=== PATIENT | male | born 1985 | race Caucasian/White ===

== ENCOUNTER 2016-11-04 17:24 | Emergency (ER) | payer SELFPAY ==
[2016-11-04 17:54] VITALS: BP 119/79
--- NOTE | 2016-11-04 18:04 | ER Document Report ---
HPI - HPI Patient complains to provider of: rash Pain Level: 3 Context: 30 yo male c/o rash to shoulders and lower legs x 1 day. + itching Associated Symptoms: None Exacerbated by: Denies Relieved by: Denies Similar symptoms previously: No Recently seen / treated by doctor: No - ROS Systems Reviewed and Negative: Yes All other systems reviewed and negative - DERM Skin Color: Normal Past Medical History - General Information source: Patient - Social History Smoking Status: Current Every Day Smoker Frequency of alcohol use: None Drug Abuse: None Lives with: Family Family History: Reviewed & Not Pertinent - Medical History Medical History: Negative Renal/ Medical History: Denies: Hx Peritoneal Dialysis Vertical Provider Document - CONSTITUTIONAL Agree With Documented VS: Yes Exam Limitations: No Limitations General Appearance: WD/WN, No Apparent Distress - INFECTION CONTROL TRAVEL OUTSIDE OF THE [place] IN LAST 30 DAYS: No - HEENT HEENT: Atraumatic, PERRLA - NECK Neck: Normal Inspection, Supple - RESPIRATORY Respiratory: Breath Sounds Normal, No Respiratory Distress O2 Sat by Pulse Oximetry: 96 - CARDIOVASCULAR Cardiovascular: Regular Rate, Regular Rhythm - NEURO Level of Consciousness: Awake, Alert, Appropriate - DERM Integumentary: Warm, Dry, Rash - scattered deroofed maculopapular rash to bilat shoulders and anterior left lower leg. trunk spared. + excoriations Course - Vital Signs Vital signs: Temp Pulse Resp BP Pulse Ox 98.2 F 88 16 119/79 96 11/04/16 17:50 11/04/16 17:50 11/04/16 17:50 11/04/16 17:50 11/04/16 17:50 Discharge - Discharge Clinical Impression: Rash and nonspecific skin eruption Condition: Stable Disposition: HOME, SELF-CARE Instructions: Use of Diphenhydramine, Topical Steroid Cream or Ointment ([facility]) Additional Instructions: Use steroid cream as prescribed Take Benadryl,, 2 tablets every 6h as needed for itching Follow up with primary care if rash persists or worsens Prescriptions: Hydrocortisone [Hydrocortisone 0.5% Cream 28.35 Gm] 1 applic TP BID #30 g
== END 2016-11-04 18:17 | disposition home or self-care (01) ==
LOC: ER 17:24
DX: R21 Rash and other nonspecific skin eruption (principal); L29.8 Other pruritus; F17.200 Nicotine dependence, unspecified, uncomplicated
CPT/HCPCS: 99282

== ENCOUNTER 2016-11-25 14:49 | Emergency (ER) | payer SELFPAY ==
[2016-11-25] MEDS ORDERED: HYDROCODONE/ACETAMINOPHEN 5-325 MG 6 TAB/DSPK PO PRN (15:37)
--- NOTE | 2016-11-25 15:45 | ER Document Report ---
ED Skin Rash/Insect Bite/Abscs - General Chief Complaint: Abscess Stated Complaint: ABSCESS/RIGHT INDEX FINGER Time Seen by Provider: 11/25/16 15:25 Mode of Arrival: Ambulatory Information source: Patient Notes: 31-year-old male presents to ED for infected right index finger. Patient states she had a bug bite 4 days ago. He states it look like a blister and it poked it with his knife. He states he some clear fluid came out and then the finger started becoming red and inflamed and swollen and painful over the last 4 days. Finger is now extremely painful to touch and he has limited motion to the finger. TRAVEL OUTSIDE OF THE [place] IN LAST 30 DAYS: No - HPI Patient complains to provider of: Tender/swollen area Onset: Other - Over the last 4 days Onset/Duration: Gradual Quality of pain: Pressure, Sharp, Throbbing Severity: Severe Pain Level: 5 Skin Character: Erythema, Swelling, Tenderness, Warm Skin Temperature: Warm Quality of rash: Painful Identify cause: Yes - blister he popped Exacerbated by: Movement Relieved by: Denies Similar symptoms previously: No Recently seen / treated by doctor: No - Related Data Allergies/Adverse Reactions: No Known Allergies Allergy (Verified 11/25/16 14:51) Past Medical History - General Information source: Patient - Social History Smoking Status: Current Every Day Smoker Cigarette use (# per day): Yes - 1/2 ppd Frequency of alcohol use: Rare Drug Abuse: None Lives with: Parents Family History: CAD, CVA, DM, Hyperlipidemia, Hypertension, Malignancy Patient has suicidal ideation: No Patient has homicidal ideation: No - Past Medical History Cardiac Medical History: Reports: None Pulmonary Medical History: Reports: None EENT Medical History: Reports: None Neurological Medical History: Reports: None Endocrine Medical History: Reports: None Renal/ Medical History: Reports: None Malignancy Medical History: Reports None GI Medical History: Reports: None Musculoskeltal Medical History: Reports None Skin Medical History: Reports None Psychiatric Medical History: Reports: None Traumatic Medical History: Reports: None Infectious Medical History: Reports: None Surgical Hx: Negative Past Surgical History: Reports: None - Immunizations Hx Diphtheria, Pertussis, Tetanus Vaccination: Yes Review of Systems - Review of Systems Constitutional: No symptoms reported EENT: No symptoms reported Cardiovascular: No symptoms reported Respiratory: No symptoms reported Gastrointestinal: No symptoms reported Genitourinary: No symptoms reported Male Genitourinary: No symptoms reported Musculoskeletal: No symptoms reported Skin: Other - Abscess to right second finger red swollen tight Hematologic/Lymphatic: No symptoms reported Neurological/Psychological: No symptoms reported -: Yes All other systems reviewed and negative - . Physical Exam - Vital signs Vitals: Temp Pulse Resp BP Pulse Ox 97.9 F 76 16 145/88 H 98 11/25/16 14:51 11/25/16 14:51 11/25/16 14:51 11/25/16 14:51 11/25/16 14:51 Interpretation: Normal - General General appearance: Appears well, Alert - HEENT Head: Normocephalic, Atraumatic Eyes: Normal Pupils: PERRL - Respiratory Respiratory status: No respiratory distress Chest status: Nontender Breath sounds: Normal Chest palpation: Normal - Cardiovascular Rhythm: Regular Heart sounds: Normal auscultation Murmur: No - Abdominal Inspection: Normal Distension: No distension Bowel sounds: Normal Tenderness: Nontender Organomegaly: No organomegaly - Back Back: Normal, Nontender - Extremities General upper extremity: Normal inspection, Nontender, Normal color, Normal ROM , Normal temperature General lower extremity: Normal inspection, Nontender, Normal color, Normal ROM , Normal temperature, Normal weight bearing. No: Amandeep's sign - Neurological Neuro grossly intact: Yes Cognition: Normal Orientation: AAOx4 Christianne Coma Scale Eye Opening: Spontaneous [place] Coma Scale Verbal: Oriented [place] Coma Scale Motor: Obeys Commands [place] Coma Scale Total: 15 Speech: Normal Motor strength normal: LUE, RUE, LLE, RLE Sensory: Normal - Psychological Associated symptoms: Normal affect, Normal mood - Skin Skin Temperature: Warm Skin Moisture: Dry Skin Color: Normal Skin irregularity: Abscess Location of irregularity: Extremities - right index finger Character of irregularity: Erythematous Irregularity with: Swelling, Tenderness, Warmth Course - Re-evaluation Re-evalutation: 11/25/16 17:[address] Medina a very swollen red and infected index finger on the right hand. Patient is right-handed. He recommended that the finger be I&D started patient started on Septra and Keflex and discharged home to follow-up with Dr. Shane in the near future. Patient was given instructions concerning the need for him to follow-up with orthopedic surgeon as instructed as this was a severe index finger infection and needed to be followed up. Patient was treated with Vina dispense back Septra and Keflex in the emergency room and discharged home with prescriptions for Keflex and Septra. Patient was instructed to soak finger in Epsom salt at least 3 times a day. - Vital Signs Vital signs: Temp Pulse Resp BP Pulse Ox 97.7 F 56 L 16 141/91 H 97 11/25/16 17:07 11/25/16 17:07 11/25/16 17:07 11/25/16 17:07 11/25/16 17:07 - Diagnostic Test Radiology reviewed: Image reviewed, Reports reviewed Procedures - Incision and Drainage Right Finger 2nd digit Type: Complex Anesthetic type: 1% Lidocaine mL's of anesthetic: 5 Blade size: 11 I&D procedure: Sterile dressing applied, Other - surgical scrub Incision Method: Incision made by scalpel Amount/type of drainage: large amount of purulent drainage Discharge - Discharge Clinical Impression: Insect bite of right index finger with infection, Abscess Condition: Stable Disposition: HOME, SELF-CARE Additional Instructions: ABSCESS: You have an abscess (boil). This a pus-forming infection, usually due to staph. Some boils may be left to drain on their own, but most require lancing. From the time the tender lump first appears, it may be three or four days before the abscess is ready to medina. Local heat and rest help at this stage of treatment. An antibiotic may prevent spread of the infection. Once the abscess is opened, packing may be placed into it. This is done so pus is not sealed inside by premature closure of the cavity. The packing will be removed at your follow-up visit or you may be advised to remove it yourself at home. Sometimes this packing must be replaced a few times during healing. The wound will heal with surprisingly little scar. Depending on the size and location of an abscess, healing can take one to four weeks. You may shower and wash the area around the incision site two or three times a day. Antibiotics may be prescribed, but are usually not necessary after an abscess has been drained. If you develop fever, chills, worsening pain, or increasing swelling in the area, call the doctor or return immediately. POST INCISION AND DRAINAGE: You have had an incision made to allow drainage of an abscess. The incision must remain open so that pus and debris can drain from the wound. If the abscess cavity is large, packing is placed. This keeps the tissues from collapsing and trapping pus inside, while the body shrinks the cavity. The packing may need to be replaced every day or two. The physician will instruct you on the packing. Keep a bulky dressing over the area. Replace it if it becomes saturated with blood or pus. Do not disturb the packing (if present). You may shower and cleanse the area with gentle soap and warm water two or three times a day. Local warmth may be soothing, and may promote faster healing. Return if you develop high fever or chills, or if you note spreading redness, increasing swelling, or increasing tenderness. ORAL NARCOTIC MEDICATION: You have been given a RainStor dispense pack for pain control. This medication is a narcotic. It's best taken with food, as nausea can result if taken on an empty stomach. Don't operate machinery or drive within six hours of taking this medication. Do not combine this medicine with alcohol, or with any medication which can cause sedation (such as cold tablets or sleeping pills) unless you get permission from the physician. Narcotics tend to cause constipation. If possible, drink plenty of fluids and eat a diet high in fiber and fruits. CEPHALEXIN: The antibiotic you've been prescribed is a member of the cephalosporin class. This type of antibiotic covers a wide variety of infections, including those of the skin, lungs, and urinary tract. It's useful for staph infections. This antibiotic is slightly similar to the penicillin family. In rare cases , a person who is allergic to penicillin will also be allergic to this medication. If you have had a severe allergic reaction to penicillin, and have not taken this antibiotic since that time, notify your doctor. Antibiotics which cover many germs ("broad spectrum" antibiotics) are more likely to cause diarrhea or "yeast" infections. Women prone to vaginal yeast problems may suffer an attack after taking this antibiotic. In infants, oral thrush (white spots "stuck" on the cheek) or yeast diaper rash may result. See your doctor if these problems occur. Call at once if you develop itching, hives , shortness of breath, or lightheadedness. TRIMETHOPRIM-SULFA: You have been given a prescription for trimethoprim-sulfa (TMS, Septra, Bactrim). This is a combination antibiotic of the sulfa class, often used for urinary tract infections, middle ear infections, bronchitis, shigella intestinal infection, and Pneumocystis pneumonia. TMS is usually well-tolerated. Occasional side effects include nausea and decreased appetite. Septra is not recommended for infants less than two months of age. Do not take this medication if you have experienced severe side effects or allergy to sulfa medicine. You should stop this medicine at once and contact your physician if you develop any rash, joint pain, shortness of breath, bruising, or jaundice ( yellow color in the skin), or if you develop any other new or unusual symptoms. Epsom Salt Soaks Soak the wound area in a container of warm epsom salt water. If you can't get the wound area into a bucket or johnson, use a folded towel soaked in the epsom salt solution and apply to the area. Use clean hot tap water (about the temperature of a very warm bath), mixing in about one (1) teaspoon for every pint of water. Two gallon --> 16 teaspoons Epsom Salts One gallon --> 8 teaspoons Epsom Salts Two quarts --> 4 teaspoons Epsom Salts One quart --> 2 teaspoons Epsom Salts Soak the wound for about 20 minutes while gently moving it around in the water. Repeat this four (4) times a day. Very important that you follow-up with orthopedic surgeon as instructed. FOLLOW-UP CARE: Most simple abscesses will not require a follow up visit. If you had packing placed in the abscess, remove it as instructed by the physician. If you have been referred to a physician for follow-up care, call the physicians office for an appointment as you were instructed or within the next two days. If you experience worsening or a significant change in your symptoms, return to the Emergency Department at any time for re-evaluation. Prescriptions: Cephalexin Monohydrate [Keflex 500 mg Capsule] 500 mg PO QID #20 capsule Sulfamethoxazole/Trimethoprim [Septra-Ds 800-160 mg Tablet] 1 tab PO BID #20 tablet Forms: Elevated Blood Pressure, Smoking Cessation Education Referrals: DEBBY SHANE, [ACTIVE STAFF] - Follow up as needed
--- NOTE | 2016-11-25 16:24 | RADIOLOGY REPORT (SQ) ---
EXAM DESCRIPTION: HAND RIGHT 3 VIEWS COMPLETED DATE/TIME: 11/25/2016 4:04 pm REASON FOR STUDY: infected 2nd finger COMPARISON: None. EXAM PARAMETERS: NUMBER OF VIEWS: Three views. TECHNIQUE: AP, lateral and oblique radiographic images acquired of the right hand. LIMITATIONS: None. FINDINGS: MINERALIZATION: Normal. BONES: No acute fracture or dislocation. No worrisome bone lesions. JOINTS: No effusions. SOFT TISSUES: Soft tissue swelling of the index finger. No radiopaque foreign body. OTHER: No other significant finding. IMPRESSION: Soft tissue swelling with no osseous abnormality and no foreign body identified. TECHNICAL DOCUMENTATION: JOB ID: [id number] [employer]- All Rights Reserved
[2016-11-25] MEDS ORDERED: SULFAMETHOXAZOLE/TRIMETHOPRIM 800-160 MG TABLET PO ONE (17:25)
[2016-11-25] MEDS ORDERED: CEPHALEXIN 500 MG CAPSULE PO ONE (17:25)
[2016-11-25 17:52] VITALS: BP 141/91
== END 2016-11-25 17:46 | disposition home or self-care (01) ==
LOC: ER 14:49
PROC: 0H9FXZZ Drainage of Right Hand Skin, External Approach (ICD-10-PCS; principal; 2016-11-25)
DX: L02.511 Cutaneous abscess of right hand (principal); F17.210 Nicotine dependence, cigarettes, uncomplicated
CPT/HCPCS: 87070; 87075; 87077; 87186; 87205; 99283

== ENCOUNTER 2016-11-26 04:27 | Emergency (ER) | payer SELFPAY ==
--- NOTE | 2016-11-26 06:34 | ER Document Report ---
ED General - General Chief Complaint: Hand Swelling Stated Complaint: INSECT BITE ON FINGER Time Seen by Provider: 11/26/16 06:23 TRAVEL OUTSIDE OF THE [place] IN LAST 30 DAYS: No - Related Data Allergies/Adverse Reactions: No Known Allergies Allergy (Verified 11/26/16 04:27) Past Medical History - Social History Family History: CAD, CVA, DM, Hyperlipidemia, Hypertension, Malignancy Renal/ Medical History: Denies: Hx Peritoneal Dialysis Surgical Hx: Negative - Immunizations Hx Diphtheria, Pertussis, Tetanus Vaccination: Yes Physical Exam - Vital signs Vitals: Temp Pulse Resp BP Pulse Ox 97.9 F 79 16 142/82 H 97 11/26/16 04:27 11/26/16 04:27 11/26/16 04:27 11/26/16 04:27 11/26/16 04:27 Course - Vital Signs Vital signs: Temp Pulse Resp BP Pulse Ox 97.9 F 79 16 142/82 H 97 11/26/16 04:27 11/26/16 04:27 11/26/16 04:27 11/26/16 04:27 11/26/16 04:27
--- NOTE | 2016-11-26 06:34 | ER Document Report ---
ED Hand/Wrist Injury - General Mode of Arrival: Ambulatory Information source: Patient TRAVEL OUTSIDE OF THE [place] IN LAST 30 DAYS: No - HPI Injury to: Index finger - right Onset: Other - 4 days ago <RAYSHAWN LOZOYA - Last Filed: 11/26/16 09:46> <NICK AVILA - Last Filed: 11/27/16 15:45> - General Chief Complaint: Hand Swelling Stated Complaint: INSECT BITE ON FINGER Time Seen by Provider: 11/26/16 06:23 Notes: Patient is a 31 year old male with no pertinent medical history who presents to the ED with complaints of worsening pain and swelling to his right hand and #2 digit. Patient was seen in the ED yesterday (11/25/16) and was told he had a bug bite. An I&D was done to his finger and he was placed on Septra and Keflex and instructed to follow up with an orthopedic surgeon in the near future. Patient states 4 days ago a blister developed, he used his pocket knife to pop it, there was some clear discharge with some yellow pus. Since then the swelling and pain has increased significantly. Patient reports some decrease in ROM secondary to the pain and swelling and some numbness in the #2 digit. Patient denies abdominal pain, sore throat, or swollen lymph nodes. He adds he does feel like he has a cold however the cold started prior to his finger. (RAYSHAWN LOZOYA) - Related Data Allergies/Adverse Reactions: No Known Allergies Allergy (Verified 11/26/16 04:27) Past Medical History - General Information source: Patient - Social History Smoking Status: Unknown if Ever Smoked Family History: CAD, CVA, DM, Hyperlipidemia, Hypertension, Malignancy Renal/ Medical History: Denies: Hx Peritoneal Dialysis Surgical Hx: Negative - Immunizations Hx Diphtheria, Pertussis, Tetanus Vaccination: Yes <RAYSHAWN LOZOYA - Last Filed: 11/26/16 09:46> Review of Systems - Review of Systems Constitutional: No symptoms reported EENT: See HPI. denies: Throat pain Cardiovascular: No symptoms reported Respiratory: No symptoms reported Gastrointestinal: See HPI. denies: Abdominal pain Genitourinary: No symptoms reported Male Genitourinary: No symptoms reported Musculoskeletal: See HPI, Other - right hand swelling and pain, right #2 digit swelling and pain with numbness Skin: See HPI, Other - bug bite to right #2 digit Hematologic/Lymphatic: See HPI. denies: Enlarged lymph nodes Neurological/Psychological: No symptoms reported <RAYSHAWN LOZOYA - Last Filed: 11/26/16 09:46> Physical Exam - General General appearance: Alert - HEENT Head: Normocephalic, Atraumatic Eyes: Normal Extraocular movements intact: Yes Pupils: PERRL - Respiratory Respiratory status: No respiratory distress Breath sounds: Normal - Cardiovascular Rhythm: Regular Heart sounds: Normal auscultation Murmur: No - Abdominal Inspection: Normal Distension: No distension Tenderness: Nontender - Extremities General upper extremity: Other - Right hand #2 digit is diffusely swollen with a lesion between the dip and pip joint, there is a 5mm incision at the lesion with purulent drainage. Swelling into the dorsam of the right hand. Upper extremity exam is otherwise normal General lower extremity: Normal inspection, Normal ROM. No: Edema - Neurological Neuro grossly intact: Yes - Psychological Associated symptoms: Normal affect, Normal mood - Skin Skin Temperature: Warm Skin Moisture: Dry Skin Color: Normal Skin irregularity: other - see upper extremity exam <RAYSHAWN LOZOYA - Last Filed: 11/26/16 09:46> - Vital signs Vitals: Temp Pulse Resp BP Pulse Ox 97.9 F 79 16 142/82 H 97 11/26/16 04:27 11/26/16 04:27 11/26/16 04:27 11/26/16 04:27 11/26/16 04:27 Course - Laboratory Result Diagrams: 11/26/16 06:47 11/26/16 06:47 - Consults [facility] Transfer Line Time consulted: 08:00 Dr. Bojorquez Time consulted: 08:14 [facility] transfer line Time consulted: 08:21 [facility] transfer line Time consulted: 08:22 Dr. Styles Time consulted: 09:02 <RAYSHAWN LOZOYA - Last Filed: 11/26/16 09:46> - Laboratory Result Diagrams: 11/26/16 06:47 11/26/16 06:47 <NICK AVILA - Last Filed: 11/27/16 15:45> - Re-evaluation Re-evalutation: 11/26/16 13:14 Transfer team from [facility] and is now here to take the patient to [place]. Patient appears to be stable. He does have some ongoing discomfort. We will treat him with an additional dose of morphine. (NICK AVILA) - Vital Signs Vital signs: Temp Pulse Resp BP Pulse Ox 98.2 F 78 20 146/86 H 96 11/26/16 09:29 11/26/16 09:29 11/26/16 09:29 11/26/16 09:29 11/26/16 09:29 - Laboratory Laboratory results interpreted by me: 11/26/16 11/26/16 06:47 06:47 WBC 15.8 H RDW 14.9 H Seg Neutrophils % 79.2 H Lymphocytes % 11.0 L Absolute Neutrophils 12.5 H Glucose 113 H - Consults [facility] Transfer Line Reason for consultation: 11/26/16 08:00 Discussed patient with transfer line. We will fax cover sheet and provider will call back (RAYSHAWN LOZOYA) Dr. Bojorquez Reason for consultation: 11/26/16 08:14 Discussed patient. He is wanting me to find a hand surgeon (RAYSHAWN LOZOYA) [facility] transfer line Reason for consultation: 11/26/16 08:21 Discussed patient. They do not have a hand surgeon investigations consultant today. (RAYSHAWN LOZOYA) [facility] transfer line Reason for consultation: 11/26/16 08:22 Discussed patient. They will call back. (RAYSHAWN LOZOYA) Dr. Styles Reason for consultation: 11/26/16 09:02 Discussed patient. Patient is accepted for admission pending bed availability at [facility]. They will try to do ED to ED transfer. 11/26/16 09:46 He is the accepting physician for this patient. We will arrange transport. ( RAYSHAWN LOZOYA) Discharge <RAYSHAWN LOZOYA - Last Filed: 11/26/16 09:46> <NICK AVILA - Last Filed: 11/27/16 15:45> - Discharge Clinical Impression: Local infection of wound Cellulitis of index finger Qualifiers: Laterality: right Qualified Code(s): L03.011 - Cellulitis of right finger Condition: Fair Disposition: [facility] Scribe Documentation - Scribe Written by Scribe:: jeniffer Brunson, 11/26/2016, [id number] acting as scribe for :: Vitaly <RAYSHAWN LOZOYA - Last Filed: 11/26/16 09:46>
[2016-11-26] MEDS ORDERED: PIPERACILLIN/TAZOBACTAM 3.375 GM VIAL IV ONE (06:37)
[2016-11-26 07:05] LABS: ABSOLUTE BASOPHILS # (AUTO) 0.1 10^3/uL (0.0-0.2); ABSOLUTE EOSINOPHILS # (AUTO) 0.3 10^3/uL (0.0-0.6); ABSOLUTE LYMPHOCYTES (AUTO) 1.7 10^3/uL (0.5-4.7); ABSOLUTE MONOCYTES (AUTO) 1.1 10^3/uL (0.1-1.4); ABSOLUTE NEUT (AUTO) 12.5 10^3/uL (1.7-8.2); BASOPHILS % (AUTO) 0.7 % (0-2); EOSINOPHILS % (AUTO) 1.9 % (0-6); HEMATOCRIT 46.7 % (37.9-51.0); HEMOGLOBIN 15.1 g/dL (13.5-17.0); HGB HCT DIFFERENCE -1.4; MEAN CORPUSCULAR HEMOGLOBIN 27.6 pg (27.0-33.4); MEAN CORPUSCULAR HGB CONC 32.2 g/dL (32.0-36.0); MEAN CORPUSCULAR VOLUME 86 fl (80-97); MONOCYTES % (AUTO) 7.2 % (3-13); RED BLOOD COUNT 5.46 10^6/uL (4.35-5.55); RED CELL DISTRIBUTION WIDTH 14.9 % (11.5-14.0); SEGMENTED NEUTROPHILS % (AUTO) 79.2 % (42-78); WHITE BLOOD COUNT 15.8 10^3/uL (4.0-10.5)
[2016-11-26 07:27] LABS: ALANINE AMINOTRANSFERASE 34 U/L (21-72); ALBUMIN 3.9 g/dL (3.5-5.0); ALKALINE PHOSPHATASE 77 U/L (38-126); ANION GAP 7 (5-19); ASPARTATE AMINO TRANSFERASE 47 U/L (17-59); BILIRUBIN,DIRECT 0.4 mg/dL (0.0-0.4); BILIRUBIN,TOTAL 0.4 mg/dL (0.2-1.3); BLOOD UREA NITROGEN 12 mg/dL (7-20); CALCIUM 9.6 mg/dL (8.4-10.2); CARBON DIOXIDE 29 mmol/L (22-30); CHLORIDE 104 mmol/L (98-107); CREATININE RESULT 0.73 mg/dL (0.52-1.25); GLUCOSE 113 mg/dL (75-110); POTASSIUM 4.3 mmol/L (3.6-5.0); TOTAL PROTEIN 6.8 g/dL (6.3-8.2)
[2016-11-26] MEDS ORDERED: MORPHINE SULFATE 10 MG/ML INJ ONE (07:54)
[2016-11-26] MEDS ORDERED: NORMAL SALINE 1000 ML 1,000 ML IV PRN (09:21)
[2016-11-26] MEDS ORDERED: MORPHINE SULFATE 10 MG/ML INJ IV ONE ×3 (09:22→13:15)
[2016-11-26 09:31] VITALS: BP 146/86
== END 2016-11-26 13:40 | disposition short-term general hospital (02) ==
LOC: ER 04:27
DX: L03.011 Cellulitis of right finger (principal); M79.89 Other specified soft tissue disorders; M79.641 Pain in right hand
CPT/HCPCS: 96376; 99284; 96361; 96375; 96365; 36415; 87040; 87070; 87205; 85025; 87077; 80053; 87186; J2270; J7030; J2543

== ENCOUNTER 2017-10-05 10:10 | Emergency (ER) | payer SELFPAY ==
--- NOTE | 2017-10-05 10:57 | ER Document Report ---
ED Extremity Problem, Lower - General Chief Complaint: Toe Injury Stated Complaint: RIGHT FOOT PAIN Time Seen by Provider: 10/05/17 10:37 Mode of Arrival: Ambulatory Information source: Patient Notes: 31-year-old male presents to ED for complaint of his left great toe pain. He states that he dropped a floor jaja on his great toe yesterday and it is painful. He states it is painful to ambulate. He is alert and oriented respirations regular and unlabored pupils equal and react light and walking with a even steady gait. There is a small abrasion and bruise to his left great toe. He also complains of a small insect bite to his right arm. It is not inflamed it is not infected there is no cellulitis noted. TRAVEL OUTSIDE OF THE [place] IN LAST 30 DAYS: No - HPI Patient complains to provider of: Injury - left great toe, Pain, Swelling Location: Great Toe Occurred: Yesterday Where: Outdoors Onset/Duration: Sudden Quality of pain: Sharp, Throbbing Severity: Moderate Pain Level: 4 Context: Other - The jaja fell on his great toe Recent injury: Yes Associated symptoms: Painful ambulation Exacerbated by: Hanging down, Movement, Walking Relieved by: Nothing - Related Data Allergies/Adverse Reactions: No Known Allergies Allergy (Verified 10/05/17 10:13) Past Medical History - General Information source: Patient - Social History Smoking Status: Current Every Day Smoker Cigarette use (# per day): Yes - One half pack per day Chew tobacco use (# tins/day): No Smoking Education Provided: Yes - [place] Frequency of alcohol use: Occasional Drug Abuse: None 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 Lives with: Spouse/Significant other Family History: CAD, CVA, DM, Hyperlipidemia, Hypertension, Malignancy Patient has suicidal ideation: No Patient has homicidal ideation: No - Past Medical History Cardiac Medical History: Reports: None Pulmonary Medical History: Reports: None EENT Medical History: Reports: None Neurological Medical History: Reports: None Endocrine Medical History: Reports: None Renal/ Medical History: Reports: None Malignancy Medical History: Reports None GI Medical History: Reports: None Musculoskeletal Medical History: Reports Hx Musculoskeletal Deformity, Reports Hx Musculoskeletal Trauma Skin Medical History: Reports None Psychiatric Medical History: Reports: None Traumatic Medical History: Reports: Hx Fractures - Finger and wrist Infectious Medical History: Reports: None Past Surgical History: Reports: Hx Orthopedic Surgery - R finger - Immunizations Immunizations up to date: Yes Hx Diphtheria, Pertussis, Tetanus Vaccination: Yes Review of Systems - Review of Systems Constitutional: No symptoms reported EENT: No symptoms reported Cardiovascular: No symptoms reported Respiratory: No symptoms reported Gastrointestinal: No symptoms reported Genitourinary: No symptoms reported Male Genitourinary: No symptoms reported Musculoskeletal: Other - left great toe pain and swelling Skin: Other - Insect bite to right arm Hematologic/Lymphatic: No symptoms reported Neurological/Psychological: No symptoms reported -: Yes All other systems reviewed and negative Physical Exam - Vital signs Vitals: Temp Pulse Resp BP Pulse Ox 97.6 F 79 18 132/79 H 97 10/05/17 10:23 10/05/17 10:23 10/05/17 10:23 10/05/17 10:23 10/05/17 10:23 Interpretation: Normal - General General appearance: Appears well, Alert - HEENT Head: Normocephalic, Atraumatic Eyes: Normal Pupils: PERRL - Respiratory Respiratory status: No respiratory distress Chest status: Nontender Breath sounds: Normal Chest palpation: Normal - Cardiovascular Rhythm: Regular Heart sounds: Normal auscultation Murmur: No - Abdominal Inspection: Normal Distension: No distension Bowel sounds: Normal Tenderness: Nontender Organomegaly: No organomegaly - Back Back: Normal, Nontender - Extremities General upper extremity: Normal color, Normal ROM, Normal temperature General lower extremity: Normal ROM, Normal temperature, Normal weight bearing. No: Amandeep's sign Elbow: Tender - Insect bite Foot: Tender - left great toe, Abrasion - left great toe, Ecchymosis - left great toe, No evidence of FB - Neurological Neuro grossly intact: Yes Cognition: Normal Orientation: AAOx4 Christianne Coma Scale Eye Opening: Spontaneous [place] Coma Scale Verbal: Oriented Christianne Coma Scale Motor: Obeys Commands Christianne Coma Scale Total: 15 Speech: Normal Motor strength normal: LUE, RUE, LLE, RLE Sensory: Normal - Psychological Associated symptoms: Normal affect, Normal mood - Skin Skin Temperature: Warm Skin Moisture: Dry Skin Color: Normal Location of irregularity: Extremities - left great toe tender swollen abrasion, Other - right arm insect bite Irregularity with: Swelling, Tenderness Course - Re-evaluation Re-evalutation: 10/05/17 19:48 X-ray report was discussed with patient and written report given to patient before discharge. Patient was instructed to elevate ice and ibuprofen for his toe contusion. Patient instructed to follow-up with orthopedics for any increase in pain or swelling. - Vital Signs Vital signs: Temp Pulse Resp BP Pulse Ox 97.8 F 69 18 111/62 98 10/05/17 12:13 10/05/17 12:13 10/05/17 12:13 10/05/17 12:13 10/05/17 12:13 - Diagnostic Test Radiology reviewed: Image reviewed, Reports reviewed Discharge - Discharge Clinical Impression: Contusion of left great toe with damage to nail Qualifiers: Encounter type: initial encounter Qualified Code(s): S90.212A - Contusion of left great toe with damage to nail, initial encounter Insect bite of right arm Qualifiers: Encounter type: initial encounter Qualified Code(s): S40.861A - Insect bite ( nonvenomous) of right upper arm, initial encounter Condition: Stable Disposition: HOME, SELF-CARE Instructions: Family Physicians / Practices Additional Instructions: CONTUSION: Your injury has resulted in a contusion -- a crushing of the deep tissues. No injury to important structures was detected during the physician's exam. Contusions vary in the amount of pain they cause, and in the length of time required for healing. Typically, the area will become bruised, and will remain painful to touch for two or three weeks. However, most patients are back to working and playing within a few days. After the initial period of rest and cold-packs, your symptoms (together with the doctor's recommendations) will determine how rapidly you can get back to full activity. Usually this means "do what feels okay, but don't do things that hurt." If re-examination was recommended, it's important to follow up as instructed. Call the doctor or return any time if pain increases, if swelling becomes severe, if you develop numbness or weakness in an injured extremity, or if any other alarming symptoms occur. ABRASIONS: An abrasion is a scraping injury of the skin. Some scarring may result. The seriousness of an abrasion is not always obvious at first. Hidden tissue damage may be present and infection may occur despite proper care. Complete healing may take from ten days to as long as a month. The healing time depends on the depth of the abrasion, and on the amount of crushing of underlying tissues from the injury. Keep the wound and dressing clean. Do not shower or bathe the area until okayed by the doctor. If the dressing gets wet, remove it and blot the wound dry, then reapply a clean dressing. Dressings should be changed every day. Sunscreen should be used for six months after the skin is healed. If any signs of infection occur (swelling, redness, increasing tenderness, red streaks, profuse purulent drainage from the abrasion, tender lumps in the armpit or groin above the abrasion, or fever), see the doctor immediately. Insect Bites You have been bitten by an insect. These bites can cause two types of swelling: an initial swelling due to insect saliva or injected poison, and a late reaction due to your body's allergic reaction. This initial local reaction may be uncomfortable but is not dangerous. Often there's an itchy "hive" at the bite location. This is treated with antihistamines, cold compresses, and resting the affected body part. The later reaction often develops about the second day. The entire area becomes very swollen, red, itchy, and tender. This is an allergic reaction. Your body is attacking the leftover insect saliva or venom. This type of allergy is unpleasant, but not dangerous. We treat this swelling with cortisone -type medicine. Sometimes we use antibiotics if we're worried about infection. Antihistamines help with the itch. If you develop a fever, chills, a red streak, or swollen glands in the area of the bite, infection may be starting. Return at once. USE OF TYLENOL (ACETAMINOPHEN): Acetaminophen may be taken for pain relief or fever control. It's much safer than aspirin, offering a wider range of "safe" dosages. It is safe during . Some brand names are Tylenol, Panadol, Datril, Anacin 3, Tempra, and Liquiprin. Acetaminophen can be repeated every four hours. The following are maximum recommended dosages: WEIGHT Dose Drops Elixir Chewable( 80mg) (LBS.) drprs=droppers tsp=teaspoon 6 40 mg 0.4 ml (1/2) 6-11 80 mg 0.8 ml (full) tsp 1 tab 12-16 120 mg 1 1/2 drprs 3/4 tsp 1 1/2 tabs 17-23 160 mg 2 drprs 1 tsp 2 tabs 24-30 240 mg 3 drprs 1 1/2 tsp 3 tabs 30-35 320 mg 2 tsp 4 tabs 36-41 360 mg 2 1/4 tsp 4 1/2 tabs 42-47 400 mg 2 1/2 tsp 5 tabs 48-53 480 mg 3 tsp 6 tabs 54-59 520 mg 3 1/4 tsp 6 1/2 tabs 60-64 560 mg 3 1/2 tsp 7 tabs 65-70 600 mg 3 3/4 tsp 7 1/2 tabs 71-76 640 mg 4 tsp 8 tabs 77-82 720 mg 4 1/2 tsp 9 tabs 83-88 800 mg 5 tsp 10 tabs >89 pounds or adults 650 mg to 900 mg Acetaminophen can be repeated every four hours. Maximum dose not to exceed 4000 mg a day. These maximum recommended dosages are slightly higher than the dosages written on the product container, but these dosages are very safe and below the toxic dosage for acetaminophen. ICE & ELEVATION: Apply ice packs frequently against the painful area. Many different schedules are recommended, such as "20 minutes on, 20 minutes off" or "one hour ice, two hours rest." If you need to work, you may need to go longer between ice treatments. You should plan to have the area ice packed AT LEAST one- fourth of the time. The ice should be applied over the wrap, tape, or splint, or over a layer of cloth -- not directly against the skin. Some ice bags have a built-in cloth and can be put directly on the skin. Your injured part should be elevated as much as possible over the next 48 hours. Try to keep the injury above the level of the heart. Avoid use of the injured area. Elevation and rest will decrease the swelling. USE OF SNCT-CYF-IDJLFBR IBUPROFEN: Ibuprofen (Advil, Nuprin, Medipren, Motrin IB) is a medication for fever and pain control. In addition, it has anti- inflammatory effects which may be beneficial, especially in the treatment of injuries. It's best to take ibuprofen with food. Persons with ulcer disease or allergy to aspirin should notify their physician of this before taking ibuprofen. Ibuprofen can be given every four to six hours, for a total of four doses daily. Age Pain or fever dose Antiinflammatory dose 6-8 yr 200 mg (1 tab) 200 mg (1 tab) 9-11 yr 200 mg (1 tab) 200-400 mg (1-2 tab) 11-14 yr 200-400 mg (1-2 tab) 400 mg (2 tab) 15-adult 400 mg (2 tab) 600 mg (3 tab) FOLLOW-UP CARE: If you have been referred to a physician for follow-up care, call the physician s office for an appointment as you were instructed or within the next two days. If you experience worsening or a significant change in your symptoms, notify the physician immediately or return to the Emergency Department at any time for re-evaluation. Forms: Elevated Blood Pressure, Smoking Cessation Education, Return to Work Referrals: [facility] [Provider Group] - Follow up as needed
--- NOTE | 2017-10-05 11:56 | RADIOLOGY REPORT (SQ) ---
EXAM DESCRIPTION: FOOT LEFT COMPLETE COMPLETED DATE/TIME: 10/05/2017 11:19 am REASON FOR STUDY: right great toe COMPARISON: None. NUMBER OF VIEWS: Three views. TECHNIQUE: AP, lateral and oblique radiographic images acquired of the left foot. LIMITATIONS: None. FINDINGS: MINERALIZATION: Normal. BONES: No acute fracture or dislocation. No worrisome bone lesions. JOINTS: No effusions. SOFT TISSUES: No soft tissue swelling. No foreign body. OTHER: No other significant finding. IMPRESSION: NEGATIVE STUDY OF THE LEFT FOOT. NO RADIOGRAPHIC EVIDENCE OF ACUTE INJURY. TECHNICAL DOCUMENTATION: JOB ID: [id number] L3- All Rights Reserved Reading location - IP/workstation name: [email or web address] [place]
[2017-10-05 12:23] VITALS: BP 111/62
== END 2017-10-05 12:23 | disposition home or self-care (01) ==
LOC: ER 10:10
DX: S90.212A Contusion of left great toe with damage to nail, initial encounter (principal); W20.8XXA Other cause of strike by thrown, projected or falling object, initial encounter; S40.861A Insect bite (nonvenomous) of right upper arm, initial encounter; W57.XXXA Bitten or stung by nonvenomous insect and other nonvenomous arthropods, initial encounter; F17.210 Nicotine dependence, cigarettes, uncomplicated
CPT/HCPCS: 99283

== ENCOUNTER 2017-11-07 15:23 | Emergency (ER) | payer SELFPAY ==
[2017-11-07 15:29] VITALS: BP 143/81
[2017-11-07] MEDS ORDERED: TETRACAINE HCL 0.5% OPH SOLN 2 ML OS ONE (16:16)
[2017-11-07] MEDS ORDERED: GENTAMICIN SULFATE 0.3% OPH OINT 3.5 GM OU ONE (16:58)
[2017-11-07] MEDS ORDERED: KETOROLAC TROMETHAMINE 0.45% 4 DROP/0.4 ML DROPERETTE OU ONE (16:59)
--- NOTE | 2017-11-07 17:03 | ER Document Report ---
HPI - HPI Pain Level: 5 Notes: Patient presents with chief complaint of bilateral eye redness and pain after washing dishes last night patient denies any trauma to the eyes and denies any foreign objects or soap getting into his eyes. Patient does report that this morning when he woke up his eyes felt slightly crusted. Patient does not wear contact lenses although he does report that he wore them approximately 3 years ago. 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 - EENT EENT: REPORTS: Eye problems Past Medical History - General Information source: Patient - Mild she is clinically - Social History Smoking Status: Current Every Day Smoker Chew tobacco use (# tins/day): No Frequency of alcohol use: None Drug Abuse: None Family History: CAD, CVA, DM, Hyperlipidemia, Hypertension, Malignancy Patient has suicidal ideation: No Patient has homicidal ideation: No Renal/ Medical History: Denies: Hx Peritoneal Dialysis Musculoskeletal Medical History: Reports Hx Musculoskeletal Deformity, Reports Hx Musculoskeletal Trauma Traumatic Medical History: Reports: Hx Fractures - Finger and wrist Past Surgical History: Reports: Hx Orthopedic Surgery - R finger - Immunizations Immunizations up to date: Yes Hx Diphtheria, Pertussis, Tetanus Vaccination: Yes Vertical Provider Document - CONSTITUTIONAL Notes: PHYSICAL EXAMINATION: GENERAL: Well-appearing, well-nourished and in no acute distress. HEAD: Atraumatic, normocephalic. EYES: Pupils equal round extraocular movements intact, conjunctiva are erythematous. ENT: Nares patent NECK: Normal range of motion LUNGS: No respiratory distress Musculoskeletal: Normal range of motion NEUROLOGICAL: Normal speech, normal gait. PSYCH: Normal mood, normal affect. SKIN: Warm, Dry, normal turgor, no rashes or lesions noted. - INFECTION CONTROL TRAVEL OUTSIDE OF THE [place] IN LAST 30 DAYS: No Course - Re-evaluation Re-evalutation: Eye examination was done and there was no uptake of the fluorescein dye. Patient tolerated the procedure well. No corneal abrasion noted, no foreign body observed. Patient will be placed on gentamicin ointment and referred to follow-up with orthopedics tomorrow. Patient verbalizes understanding of this plan and agrees to same. Patient to the ER if his pain gets worse or any new complaints arise. - Vital Signs Vital signs: Temp Pulse Resp BP Pulse Ox 97.8 F 63 18 143/81 H 98 11/07/17 15:28 11/07/17 15:28 11/07/17 15:28 11/07/17 15:28 11/07/17 15:28 Discharge - Discharge Clinical Impression: Redness of both eyes Conjunctivitis Qualifiers: Conjunctivitis type: acute Acute conjunctivitis type: unspecified Laterality: bilateral Qualified Code(s): H10.33 - Unspecified acute conjunctivitis, bilateral Condition: Fair Disposition: HOME, SELF-CARE Additional Instructions: Your eye exam using flourescein seen was unremarkable. I did not see any evidence of any corneal abrasion or foreign body. Please use the gentamicin ointment as prescribed. Please follow-up with [facility] tomorrow, call in the morning and let them know you were seen in the emergency department and that you need to be evaluated. Referrals: [facility] [Provider Group] - Follow up as needed
== END 2017-11-07 17:10 | disposition home or self-care (01) ==
LOC: ER 15:23
DX: H10.33 Unspecified acute conjunctivitis, bilateral (principal); H57.8 Other specified disorders of eye and adnexa; F17.200 Nicotine dependence, unspecified, uncomplicated
CPT/HCPCS: 99283; J3490

== ENCOUNTER 2017-12-29 19:45 | Emergency (ER) | payer SELFPAY ==
[2017-12-29 19:50] VITALS: BP 162/92
[2017-12-29] MEDS ORDERED: ACETAMINOPHEN 325 MG TABLET PO ONE (20:17)
[2017-12-29] MEDS ORDERED: CEPHALEXIN 500 MG CAPSULE PO ONE (20:54)
[2017-12-29] MEDS ORDERED: HYDROCODONE/ACETAMINOPHEN 5-325 MG (6 TAB/ER DISP) PO PRN (20:54)
[2017-12-29] MEDS ORDERED: SULFAMETHOXAZOLE/TRIMETHOPRIM 800-160 MG TABLET PO ONE (20:55)
--- NOTE | 2017-12-29 21:11 | ER Document Report ---
ED Skin Rash/Insect Bite/Abscs - General Chief Complaint: Abscess Stated Complaint: POSSIBLE ABSCESS Time Seen by Provider: 12/29/17 20:35 Notes: 32-year-old male to the emergency department chief complaint of right knee pain and redness. 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 Had an abscess. States that it feels like he is getting an abscess again in his knee. Started noticing the redness and swelling yesterday. 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 The redness is gotten bigger. Increasing amount of pain to palpation. Denies any fever, chills, sweats or other issues at this time. TRAVEL OUTSIDE OF THE [place] IN LAST 30 DAYS: No - HPI Patient complains to provider of: Skin rash/lesion Onset: Yesterday - Related Data Allergies/Adverse Reactions: No Known Allergies Allergy (Verified 10/05/17 10:13) Past Medical History - General Information source: Patient - Social History Smoking Status: Current Every Day Smoker Cigarette use (# per day): Yes Frequency of alcohol use: None Drug Abuse: None Lives with: Family Family History: CAD, CVA, DM, Hyperlipidemia, Hypertension, Malignancy Renal/ Medical History: Denies: Hx Peritoneal Dialysis Musculoskeletal Medical History: Reports Hx Musculoskeletal Deformity, Reports Hx Musculoskeletal Trauma Traumatic Medical History: Reports: Hx Fractures - Finger and wrist Past Surgical History: Reports: Hx Orthopedic Surgery - R finger - Immunizations Immunizations up to date: Yes Hx Diphtheria, Pertussis, Tetanus Vaccination: Yes Review of Systems - Review of Systems Constitutional: denies: Fever, Malaise, Weakness Cardiovascular: denies: Chest pain, Palpitations, Heart racing Respiratory: denies: Cough, Hurts to breathe, Short of breath Musculoskeletal: See HPI, Other - Right knee pain, redness and swelling Skin: See HPI, Other - Cellulitis/rash on the right knee Neurological/Psychological: No symptoms reported. denies: Confusion, Weakness, Numbness Physical Exam - Vital signs Vitals: Temp Pulse Resp BP Pulse Ox 97.6 F 78 16 162/92 H 98 12/29/17 19:46 12/29/17 19:46 12/29/17 19:46 12/29/17 19:46 12/29/17 19:46 Interpretation: Normal - General General appearance: Appears well In distress: None - Respiratory Respiratory status: No respiratory distress Chest status: Nontender Breath sounds: Normal Chest palpation: Normal - Cardiovascular Rhythm: Regular Heart sounds: Normal auscultation Murmur: No - Abdominal Inspection: Normal Distension: No distension Bowel sounds: Normal Tenderness: Nontender Organomegaly: No organomegaly - Extremities General upper extremity: Normal inspection, Normal ROM. No: Tender General lower extremity: Other - The right knee demonstrates some mild tenderness to palpation superficially. Maintains full range of motion of the knee. There appears to be early cellulitis with approximately 4-5 cm area of erythema around the right patella area. There is a small area of folliculitis/ cellulitis. There is no active drainage. Bedside ultrasound does not reveal any significant amount of abscess or fluid. There does not appear to be an effusion on the joint by ultrasound or physical exam. Course - Re-evaluation Re-evalutation: 12/29/17 20:58 At this time will elect to not perform any incision and drainage. There does not appear to be an abscess that is drainable. Based on his history of MRSA cellulitis will start him on some Bactrim and Keflex. Patient is comfortable with this plan. We will give him some pain medication and a work note as well. - Vital Signs Vital signs: Temp Pulse Resp BP Pulse Ox 97.6 F 78 16 162/92 H 98 12/29/17 19:46 12/29/17 19:46 12/29/17 19:46 12/29/17 19:46 12/29/17 19:46 Discharge - Discharge Clinical Impression: Cellulitis of right knee Condition: Good Disposition: HOME, SELF-CARE Instructions: MRSA Cellulitis ([facility]), Cephalexin ([facility]), Trimethoprim-Sulfa ([facility]) , Oral Narcotic Medication ([facility]) Additional Instructions: Stay off the knee for the next 48 hours. Use warm compresses at home this may help bring the infection to the surface. In the event that the redness is spreading quickly please return for repeat evaluation. Prescriptions: Cephalexin Monohydrate [Keflex 500 mg Capsule] 500 mg PO Q6H 7 Days #28 capsule Sulfamethoxazole/Trimethoprim [Bactrim Ds Tablet] 1 each PO BID 7 Days #14 tablet Forms: Return to Work
== END 2017-12-29 21:30 | disposition home or self-care (01) ==
LOC: ER 19:45
DX: L03.115 Cellulitis of right lower limb (principal); F17.210 Nicotine dependence, cigarettes, uncomplicated
CPT/HCPCS: 99282

== ENCOUNTER 2017-12-30 15:47 | Inpatient (IN) | payer SELFPAY ==
[2017-12-30] MEDS ORDERED: HYDROCODONE/ACETAMINOPHEN 5-325 MG TABLET PO ONE (16:29)
[2017-12-30] MEDS ORDERED: VANCOMYCIN HCL INJ 1000 MG VIAL IV ONE (16:29)
[2017-12-30] MEDS ORDERED: CEFTRIAXONE 1 GM/D5W RTU 1 GM/50 ML RTUPB IV ONE (16:29)
--- NOTE | 2017-12-30 16:31 | ER Document Report ---
ED Medical Screen (RME) - General Mode of Arrival: Ambulatory Information source: Patient TRAVEL OUTSIDE OF THE [place] IN LAST 30 DAYS: No <LORRI GONZALES - Last Filed: 12/30/17 16:59> <HEROLARRYNICA - Last Filed: 12/30/17 21:03> - General Chief Complaint: Knee Pain Stated Complaint: KNEE PAIN Time Seen by Provider: 12/30/17 16:22 Notes: Patient is a 32 year old male with a history of MRSA presents to the emergency department complaining of right knee pain, swelling and redness. Patient states he presented to the emergency department last night complaining of right knee pain and redness and was discharged with Bactrim and Keflex. He states he has yet to take the medications but has noticed some new swelling and erythema outside the marked line from yesterday. GENERAL: Alert, interacts well. No acute distress. HEAD: Normocephalic, atraumatic. EYES: Pupils equal, round, and reactive to light. Extraocular movements intact. ENT: Oral mucosa moist, tongue midline. NECK: Full range of motion. Supple. Trachea midline. LUNGS: No respiratory distress. EXTREMITIES: Moves all 4 extremities spontaneously. Area of erythema on the RLE that extends 1mm past marker line made last night that extends to the top of the patella and extends half way down tibia. Mild swelling noted. NEUROLOGICAL: Alert and oriented x3. Normal speech. PSYCH: Normal affect, normal mood. SKIN: Warm, dry, normal turgor. I have greeted and performed a rapid initial assessment of this patient. A comprehensive ED assessment and evaluation of the patient, analysis of test results and completion of the medical decision making process will be conducted by additional ED providers. (LORRI GONZALES) - Related Data Allergies/Adverse Reactions: No Known Allergies Allergy (Verified 10/05/17 10:13) Past Medical History Renal/ Medical History: Denies: Hx Peritoneal Dialysis Musculoskeltal Medical History: Reports Hx Musculoskeletal Deformity, Reports Hx Musculoskeletal Trauma Traumatic Medical History: Reports: Hx Fractures - Finger and wrist Past Surgical History: Reports: Hx Orthopedic Surgery - R finger - Immunizations Immunizations up to date: Yes Hx Diphtheria, Pertussis, Tetanus Vaccination: Yes <LORRI GONZALES - Last Filed: 12/30/17 16:59> - Vital signs Vitals: Temp Pulse Resp BP Pulse Ox 98.9 F 106 H 14 144/79 H 95 12/30/17 15:51 12/30/17 15:51 12/30/17 15:51 12/30/17 15:51 12/30/17 15:51 Course - Laboratory Result Diagrams: 12/30/17 17:02 12/30/17 17:02 <NICA GOVEA - Last Filed: 12/30/17 21:03> - Vital Signs Vital signs: Temp Pulse Resp BP Pulse Ox 98.0 F 87 14 139/72 H 98 12/30/17 20:30 12/30/17 20:30 12/30/17 15:51 12/30/17 20:30 12/30/17 20:30 - Laboratory Laboratory results interpreted by me: 12/30/17 17:02 WBC 17.9 H RDW 15.3 H Absolute Neutrophils 13.1 H Absolute Monocytes 1.8 H Doctor's Discharge <LORRI GONZALES - Last Filed: 12/30/17 16:59> <NICA GOVEA - Last Filed: 12/30/17 21:03> - Discharge Clinical Impression: Cellulitis Condition: Stable Disposition: ADMITTED OBSERVATION
[2017-12-30 17:14] LABS: ABSOLUTE BASOPHILS # (AUTO) 0.1 10^3/uL (0.0-0.2); ABSOLUTE EOSINOPHILS # (AUTO) 0.3 10^3/uL (0.0-0.6); ABSOLUTE LYMPHOCYTES (AUTO) 2.6 10^3/uL (0.5-4.7); ABSOLUTE MONOCYTES (AUTO) 1.8 10^3/uL (0.1-1.4); ABSOLUTE NEUT (AUTO) 13.1 10^3/uL (1.7-8.2); BASOPHILS % (AUTO) 0.5 % (0-2); EOSINOPHILS % (AUTO) 1.7 % (0-6); HEMATOCRIT 45.4 % (37.9-51.0); LYMPHOCYTES % (AUTO) 14.5 % (13-45); MEAN CORPUSCULAR VOLUME 85 fl (80-97); MONOCYTES % (AUTO) 9.9 % (3-13); PLATELET COUNT 245 10^3/uL (150-450); RED BLOOD COUNT 5.36 10^6/uL (4.35-5.55); RED CELL DISTRIBUTION WIDTH 15.3 % (11.5-14.0); SEGMENTED NEUTROPHILS % (AUTO) 73.4 % (42-78); TOTAL CELLS COUNTED % (AUTO) 100 %; WHITE BLOOD COUNT 17.9 10^3/uL (4.0-10.5)
[2017-12-30 17:31] LABS: ALANINE AMINOTRANSFERASE 26 U/L (21-72); ALBUMIN 4.1 g/dL (3.5-5.0); ALKALINE PHOSPHATASE 57 U/L (38-126); ANION GAP 10 (5-19); ASPARTATE AMINO TRANSFERASE 19 U/L (17-59); BILIRUBIN,DIRECT 0.2 mg/dL (0.0-0.4); BILIRUBIN,TOTAL 0.7 mg/dL (0.2-1.3); BLOOD UREA NITROGEN 8 mg/dL (7-20); CALCIUM 9.5 mg/dL (8.4-10.2); CARBON DIOXIDE 25 mmol/L (22-30); CHLORIDE 103 mmol/L (98-107); GLUCOSE 94 mg/dL (75-110); POTASSIUM 4.1 mmol/L (3.6-5.0); SODIUM 137.6 mmol/L (137-145)
[2017-12-30] MEDS ORDERED: MORPHINE SULFATE 10 MG/ML INJ IV ONE (18:29)
--- NOTE | 2017-12-30 18:30 | ER Document Report ---
ED General - General Chief Complaint: Knee Pain Stated Complaint: KNEE PAIN Time Seen by Provider: 12/30/17 16:22 Mode of Arrival: Ambulatory Information source: Patient Notes: Patient is a 32-year-old male who presents with chief complaint of right knee infection. Patient reports he was seen in this emergency department yesterday and diagnosed with cellulitis around his right knee. Patient reports he was given a prescription for antibiotics as well as pain medications. Patient states he took the pain medications but did not get the antibiotics filled, states he only had 1 dose here in the ER. Patient reports the pain is significantly worse and the redness has come outside the borders of the previous marking done by the emergency room physician. Patient denies any fever , nausea, vomiting or chills. TRAVEL OUTSIDE OF THE [place] IN LAST 30 DAYS: No - Related Data Allergies/Adverse Reactions: No Known Allergies Allergy (Verified 10/05/17 10:13) Past Medical History - General Information source: Patient - Social History Smoking Status: Current Every Day Smoker Frequency of alcohol use: Occasional Drug Abuse: None Family History: CAD, CVA, DM, Hyperlipidemia, Hypertension, Malignancy Patient has suicidal ideation: No Patient has homicidal ideation: No Renal/ Medical History: Denies: Hx Peritoneal Dialysis Musculoskeletal Medical History: Reports Hx Musculoskeletal Deformity, Reports Hx Musculoskeletal Trauma Traumatic Medical History: Reports: Hx Fractures - Finger and wrist Past Surgical History: Reports: Hx Orthopedic Surgery - R finger - Immunizations Immunizations up to date: Yes Hx Diphtheria, Pertussis, Tetanus Vaccination: Yes Review of Systems - Review of Systems Skin: See HPI Physical Exam - Vital signs Vitals: Temp Pulse Resp BP Pulse Ox 98.9 F 106 H 14 144/79 H 95 12/30/17 15:51 12/30/17 15:51 12/30/17 15:51 12/30/17 15:51 12/30/17 15:51 - Notes Notes: PHYSICAL EXAMINATION: GENERAL: Well-appearing, well-nourished and in no acute distress. HEAD: Atraumatic, normocephalic. EYES: Pupils equal round and reactive to light, extraocular movements intact, sclera anicteric, conjunctiva are normal. ENT: Nares patent, oropharynx clear without exudates. Moist mucous membranes. NECK: Normal range of motion, supple without lymphadenopathy LUNGS: Breath sounds clear to auscultation bilaterally and equal. No wheezes rales or rhonchi. HEART: Regular rate and rhythm without murmurs ABDOMEN: Soft, nontender, nondistended abdomen. No guarding, no rebound. No masses appreciated. Musculoskeletal: Normal range of motion, no pitting or edema. No cyanosis. Erythema noted around right knee. NEUROLOGICAL: Cranial nerves grossly intact. Normal speech, normal gait. Normal sensory, motor exams PSYCH: Normal mood, normal affect. SKIN: Erythema noted around right knee, no drainable abscess identified. Course - Re-evaluation Re-evalutation: Patient was seen in this emergency department approximately 24 hours ago and area of erythema was marked with a skin marker. This area has grown significantly Over the last 24 hours. WBC is now 17.9, laboratory results otherwise unremarkable. Patient is able to move the right knee with full range of motion. Patient denies any increase in pain when he bends his knee. 12/30/17 18:30 Consulted hospitalist for admission. Spoke with Dr. Anthony who agrees to admit patient. - Vital Signs Vital signs: Temp Pulse Resp BP Pulse Ox 98.7 F 81 16 148/79 H 99 12/30/17 21:16 12/30/17 21:16 12/30/17 21:16 12/30/17 21:16 12/30/17 21:16 - Laboratory Result Diagrams: 12/30/17 17:02 12/30/17 17:02 Laboratory results interpreted by me: 12/30/17 17:02 WBC 17.9 H RDW 15.3 H Absolute Neutrophils 13.1 H Absolute Monocytes 1.8 H Discharge - Discharge Clinical Impression: Cellulitis Qualifiers: Site of cellulitis: unspecified site Qualified Code(s): L03.90 - Cellulitis, unspecified Condition: Stable Disposition: ADMITTED OBSERVATION Admitting Provider: Hospitalist Unit Admitted: Medical Floor
[2017-12-30] MEDS ORDERED: VANCOMYCIN HCL 0 MG in DEXTROSE 5%-WATER 250 ML IV NR (19:00)
--- NOTE | 2017-12-30 19:10 | PDOC H&P ---
History of Present Illness Patient complains of: right knee pain and swelling History of Present Illness: BROOKE LANG is a 32 year old male with no significant past medical history aside form a history of MRSA infection of the right hand who came in with right knee tenderness. He says he had an ingrown hair on the right knee which started developing a small erythema around it 3 days ago. The erythema progressed along with tenderness. He went to the ER yesterday and was treated for cellulitis. He was discharged on Bactrim and Keflex but patient and girlfriend says he does not have insurance hence was not able to get the antibiotics from the pharmacy. The erythema had gone beyond the markings from last night. He also reports of worsening tenderness and decided to go back to the ER. He denies fever or chills. Past Medical History Medical History: None Past Surgical History Past Surgical History: Reports: Orthopedic Surgery - R finger Social History Smoking Status: Unknown if Ever Smoked Family History Family History: CAD, CVA, DM, Hyperlipidemia, Hypertension, Malignancy Parental Family History Reviewed: Yes - no premature CAD Children Family History Reviewed: No Sibling(s) Family History Reviewed.: No Medication/Allergy Home Medications: No Home Medications 12/30/17 Allergies/Adverse Reactions: No Known Allergies Allergy (Verified 10/05/17 10:13) Physical Exam Vital Signs: Temp Pulse Resp BP Pulse Ox 98.9 F 106 H 14 144/79 H 95 12/30/17 15:51 12/30/17 15:51 12/30/17 15:51 12/30/17 15:51 12/30/17 15:51 Intake & Output 12/29/17 12/30/17 12/31/17 06:59 06:59 06:59 Intake Total 50 Balance 50 Weight 158 lb 15.253 oz General appearance: PRESENT: no acute distress, well-developed, well-nourished Head exam: PRESENT: atraumatic, normocephalic Eye exam: PRESENT: conjunctiva pink, EOMI, PERRLA. ABSENT: scleral icterus Ear exam: PRESENT: normal external ear exam Mouth exam: PRESENT: moist, tongue midline Neck exam: ABSENT: carotid bruit, JVD, lymphadenopathy, thyromegaly Respiratory exam: PRESENT: clear to auscultation lexi. ABSENT: rales, rhonchi, wheezes Cardiovascular exam: PRESENT: RRR. ABSENT: diastolic murmur, rubs, systolic murmur Pulses: PRESENT: normal dorsalis pedis pul Vascular exam: PRESENT: normal capillary refill GI/Abdominal exam: PRESENT: normal bowel sounds, soft. ABSENT: distended, guarding, mass, organolmegaly, rebound, tenderness Rectal exam: PRESENT: deferred Musculoskeletal exam: PRESENT: other - note of erythema extending from the right suprapatellar area down to the proximal anteriro portion of the right tibial area, note of a papular central lesion in the middle of the erythema with no fluctance or active discharge or open wound Neurological exam: PRESENT: alert, awake, oriented to person, oriented to place , oriented to time, oriented to situation, CN II-XII grossly intact. ABSENT: motor sensory deficit Results Laboratory Results: 12/30/17 17:02 12/30/17 17:02 12/30/17 12/30/17 17:02 17:02 WBC 17.9 H RBC 5.36 Hgb 15.0 Hct 45.4 MCV 85 MCH 28.0 MCHC 33.0 RDW 15.3 H Plt Count 245 Seg Neutrophils % 73.4 Lymphocytes % 14.5 Monocytes % 9.9 Eosinophils % 1.7 Basophils % 0.5 Absolute Neutrophils 13.1 H Absolute Lymphocytes 2.6 Absolute Monocytes 1.8 H Absolute Eosinophils 0.3 Absolute Basophils 0.1 Sodium 137.6 Potassium 4.1 Chloride 103 Carbon Dioxide 25 Anion Gap 10 BUN 8 Creatinine 0.75 Est GFR ( Amer) > 60 Est GFR (Non-Af Amer) > 60 Glucose 94 Calcium 9.5 Total Bilirubin 0.7 AST 19 ALT 26 Alkaline Phosphatase 57 Total Protein 7.0 Albumin 4.1 Assessment & Plan - Diagnosis (1) Cellulitis of right knee Is this a current diagnosis for this admission?: Yes Plan: Patient was started on vancomycin in the ER. Called by ER nurse that after 150 cc of vancomycin, patient started having itchiness with no rashes or SOB. Will switch vancomycin to clindamycin. Will consult social service assistant to assist with procuring home antibiotics as patient does not have insurance and was not able to afford medications. - Time Time Spent: 30 to 50 Minutes
[2017-12-30] MEDS: NORMAL SALINE 1000 ML 1,000 ML IV PRN ×2 (19:24→21:24)
[2017-12-30] MEDS ORDERED: DIPHENHYDRAMINE HCL 50 MG/ML VIAL IV ONE (19:30)
[2017-12-30] MEDS ORDERED: METHYLPREDNISOLONE INJ 40 MG/1 ML SDV IV ONE (20:00)
[2017-12-30] MEDS: HEPARIN SOD (PORCINE) 5,000 UNIT/ML 1 ML SYRINGE SUBCUT SCH (21:23)
[2017-12-30] MEDS: CLINDAMYCIN 600 MG/D5W RTU 600 MG/50 ML RTUPB IV SCH (21:24)
[2017-12-31] MEDS: MORPHINE SULFATE 10 MG/ML INJ IV PRN ×5 (02:22→20:00)
[2017-12-31] MEDS: CLINDAMYCIN 600 MG/D5W RTU 600 MG/50 ML RTUPB IV SCH (05:30)
[2017-12-31] MEDS ORDERED: CEFTRIAXONE 1 GM/D5W RTU 1 GM/50 ML RTUPB IV SCH (10:00)
[2017-12-31] MEDS: HEPARIN SOD (PORCINE) 5,000 UNIT/ML 1 ML SYRINGE SUBCUT SCH ×2 (10:46→21:10)
[2017-12-31] MEDS ORDERED: VANCOMYCIN HCL 0 MG in DEXTROSE 5%-WATER 250 ML IV NR (11:15)
--- NOTE | 2017-12-31 11:20 | PDOC PROGRESS REPORT ---
Subjective Progress Note for:: 12/31/17 Subjective:: BROOKE LANG is a 32 year old male with no significant past medical history aside form a history of MRSA infection of the right hand who was admitted for right knee cellulitis. He was not able to afford prescribe outpatient antibiotics from the ER hence came in with worsening right knee swelling and erythema. Patient had mild itching of the fingers while getting the vancomycin in the ER. However, he did not have any rash or shortness of breath. He did say he had MRSA infection of the hand earlier this year and was treated with vancomycin with no allergic reaction or adverse effect. The lesions have not gone beyond the demarcations from yesterday. The is only very minimal improvement in the erythema. No fever or chills. Reason For Visit: RIGHT KNEE CELLULITIS Physical Exam Vital Signs: Temp Pulse Resp BP Pulse Ox 97.9 F 57 L 16 127/65 H 97 12/31/17 08:00 12/31/17 08:00 12/31/17 08:00 12/31/17 08:00 12/31/17 08:00 Intake & Output 12/30/17 12/31/17 01/01/18 06:59 06:59 06:59 Intake Total 200 Balance 200 Weight 158 lb 15.253 oz General appearance: PRESENT: no acute distress, well-developed, well-nourished Head exam: PRESENT: atraumatic, normocephalic Eye exam: PRESENT: conjunctiva pink, EOMI, PERRLA. ABSENT: scleral icterus Ear exam: PRESENT: normal external ear exam Mouth exam: PRESENT: moist, tongue midline Neck exam: ABSENT: carotid bruit, JVD, lymphadenopathy, thyromegaly Respiratory exam: PRESENT: clear to auscultation lexi. ABSENT: rales, rhonchi, wheezes Cardiovascular exam: PRESENT: RRR. ABSENT: diastolic murmur, rubs, systolic murmur Pulses: PRESENT: normal dorsalis pedis pul GI/Abdominal exam: PRESENT: normal bowel sounds, soft. ABSENT: distended, guarding, mass, organolmegaly, rebound, tenderness Rectal exam: PRESENT: deferred Extremities exam: PRESENT: other - note of erythema extending from the right suprapatellar area down to the proximal anterior portion of the right tibial area, note of a papular central lesion in the middle of the erythema with no significant palpable fluctuance or active discharge or open wound, there is only mild LOM from pain on flexion but patient does not complain of significant tenderness of flexion extension of right knee joint Neurological exam: PRESENT: alert, awake, oriented to person, oriented to place , oriented to time, oriented to situation, CN II-XII grossly intact. ABSENT: motor sensory deficit Assessment & Plan - Diagnosis (1) Cellulitis of right knee Is this a current diagnosis for this admission?: Yes Plan: Patient had mild itching of the fingers while getting the vancomycin in the ER. However, he did not have any rash or shortness of breath. He did say he had MRSA infection of the hand earlier this year and was treated with vancomycin with no allergic reaction or adverse effect. The itching is unlikely to be a true allergic reaction to vancomycin as he tolerated several doses of vacomycin earlier this year. Will switch clindamycin back to vancomycin as he does have a history of MRSA. The lesions have not gone beyond the demarcations from yesterday. The is only very minimal improvement in the erythema. Will also do a right knee US to rule out an abscess and effusion. Consulted geriatric social worker to assist with procuring home antibiotics as patient does not have insurance and was not able to afford medications. - Time Time Spent with patient: 15-24 minutes
[2017-12-31] MEDS: VANCOMYCIN HCL 1,000 MG in DEXTROSE 5%-WATER 250 ML IV SCH ×2 (13:39→21:06)
--- NOTE | 2017-12-31 14:29 | RADIOLOGY REPORT (SQ) ---
EXAM DESCRIPTION: U/S EXTREMITY NONVASCULAR LTD COMPLETED DATE/TIME: 12/31/2017 2:08 pm REASON FOR STUDY: right knee cellulitis, assess for abscess,effusion COMPARISON: None. TECHNIQUE: Static and real time funes scale ultrasound Doppler spectral analysis, and color Doppler a cquired in the area of concern in the right knee. LIMITATIONS: None. FINDINGS: Sonographic images show soft tissue edema. In the area of pain there is a small irregular fluid collection measuring 17 x 4 x 13 mm concerning for small abscess. IMPRESSION: Soft tissue edema. There appears to be a small abscess as described. TECHNICAL DOCUMENTATION: JOB ID: [id number] 2006 [employer]- All Rights Reserved Reading location - IP/workstation name: [email or web address]
[2017-12-31] MEDS ORDERED: ACETAMINOPHEN 325 MG TABLET PO PRN (14:46)
[2017-12-31] MEDS: HYDROCODONE/ACETAMINOPHEN 5-325 MG TABLET PO PRN ×2 (16:53→22:55)
[2017-12-31] MEDS: CEFTRIAXONE SODIUM 1,000 MG in DEXTROSE 5%-WATER 50 ML IV SCH (18:42)
[2017-12-31] MEDS: NORMAL SALINE 1000 ML 1,000 ML IV PRN (21:05)
[2018-01-01] MEDS: MORPHINE SULFATE 10 MG/ML INJ IV PRN ×5 (04:09→22:38)
[2018-01-01] MEDS ORDERED: HYDROCODONE/ACETAMINOPHEN 5-325 MG TABLET PO ONE (04:45)
[2018-01-01] MEDS: HYDROCODONE/ACETAMINOPHEN 5-325 MG TABLET PO PRN ×3 (04:50→17:01)
[2018-01-01] MEDS: VANCOMYCIN HCL 1,000 MG in DEXTROSE 5%-WATER 250 ML IV SCH ×2 (05:03→13:23)
[2018-01-01] MEDS ORDERED: HYDROMORPHONE HCL INJ/PF 2 MG/ML AMPULE ONE (09:55)
[2018-01-01] MEDS: HEPARIN SOD (PORCINE) 5,000 UNIT/ML 1 ML SYRINGE SUBCUT SCH ×2 (10:11→21:32)
[2018-01-01] MEDS: NORMAL SALINE 1000 ML 1,000 ML IV PRN ×2 (10:16→13:24)
--- NOTE | 2018-01-01 12:01 | PDOC CONSULTATION ---
Consultation Consult Date: 01/01/18 Consult reason:: Right knee superficial abscess History of Present Illness Admission Date/PCP: 12/30/17 19:53 Patient complains of: Right knee superficial abscess History of Present Illness: BROOKE LANG is a 32 year old male with history of MRSA infection and abscess of the finger required I&D. Is coming in with 5 days worth of redness and swelling of the right lower knee and lower extremity a little mass. Complains of it being red hot and tender to palpation. Does have good range of motion of the knee. Denies any fevers or chills. Patient has been admitted for last couple days for IV antibiotics but no improvement in symptoms and orthopedic is consulted for potential I&D of the abscess. Past Medical History Psychiatric Medical History: Reports: Depression Past Surgical History Past Surgical History: Reports: Orthopedic Surgery - R finger Social History Smoking Status: Unknown if Ever Smoked Cigarettes Packs Per Day: 0.5 Number of Years Smokin Last Time Smoked: 12/30/17 Frequency of Alcohol Use: None Hx Recreational Drug Use: No Drugs: None Hx Prescription Drug Abuse: No - Advance Directive Resuscitation Status: Full Code Family History Family History: CAD, CVA, DM, Hyperlipidemia, Hypertension, Malignancy Parental Family History Reviewed: No Children Family History Reviewed: No Sibling(s) Family History Reviewed.: No Medication/Allergy Home Medications: No Home Medications 12/30/17 Allergies/Adverse Reactions: No Known Allergies Allergy (Verified 10/05/17 10:13) Review of Systems Review of Systems: Constitutional: [PRESENT: as per HPI. ABSENT: chills, fever(s), headache(s), weight gain, weight loss] Eyes: [ABSENT: visual disturbances] Ears: [ABSENT: hearing changes] Cardiovascular: [ABSENT: chest pain, dyspnea on exertion, edema, orthropnea, palpitations] Respiratory: [ABSENT: cough, hemoptysis] Gastrointestinal: [ABSENT: abdominal pain, constipation, diarrhea, hematemesis, hematochezia, nausea, vomiting] Genitourinary: [ABSENT: dysuria, hematuria] Musculoskeletal: See HPI Integumentary: [ABSENT: rash, wounds] Neurological: [ABSENT: abnormal gait, abnormal speech, confusion, dizziness, focal weakness, syncope] Psychiatric: [ABSENT: anxiety, depression, homicidal ideation, suicidal ideation ] Endocrine: [ABSENT: cold intolerance, heat intolerance, menstrual abnormalities , polydipsia, polyuria] Hematologic/Lymphatic: [ABSENT: easy bleeding, easy bruising, lymphadenopathy] Physical Exam Vital Signs: Temp Pulse Resp BP Pulse Ox 36.9 C 60 16 139/85 H 94 01/01/18 07:20 01/01/18 07:20 01/01/18 07:20 01/01/18 07:20 01/01/18 07:20 Intake & Output 12/31/17 01/01/18 01/02/18 06:59 06:59 06:59 Intake Total 200 3174 659 Output Total 2475 Balance 200 699 659 Weight 72.1 kg 74.2 kg General appearance: PRESENT: no acute distress, well-nourished Eye exam: PRESENT: EOMI. ABSENT: nystagmus Ear exam: PRESENT: normal external ear exam Mouth exam: PRESENT: neck supple Neck exam: ABSENT: thyromegaly Cardiovascular exam: PRESENT: RRR Pulses: PRESENT: normal dorsalis pedis pul Vascular exam: PRESENT: normal capillary refill, pallor GI/Abdominal exam: PRESENT: soft. ABSENT: distended, tenderness Neurological exam: PRESENT: alert, awake, oriented to person, oriented to place , oriented to time, oriented to situation Skin exam: PRESENT: erythema, warm. ABSENT: skin tears Adult Front & Back Image: 1 - Area about 1 cm x 1cm anterior aspect of the tibia about a centimeter lateral to the tibial tubercle. Ingrown hair that has developed a little abscess that is tender palpation red fluctuant and superficial. Additonal comments: Bedside I&D was performed by using incision tray. Sterile technique was used using alcohol and Betadine to clean the area and a sterile gloves were used with sterile incision tray that I used to then inject 1% lidocaine in the field with a local block. Patient also was given 5 minutes for the medication to take effect. Tested and noted he had no feeling in the area. 11 blade that came in the tray was used to do an incision about I was able to express pus and culture it. I then immediately bloody drainage showing that the whole abscess was evacuated. I used a 4 x 4 dressing and she was able to place inside the wound and clean the edges. Iodoform was used to place inside the incised superficial abscess. There was no foreign bodies. 4 x 4 dressing and soft roll was applied and taped to allow for the area to drain. Results Impressions: Extremity Ultrasound 12/31/17 11:04 IMPRESSION: Soft tissue edema. There appears to be a small abscess as described. Status: Image reviewed by me Assessment & Plan - Diagnosis (1) Abscess of knee, right Is this a current diagnosis for this admission?: Yes Plan: 32-year-old gentleman with ingrown hair and MRSA who developed a abscess superficially. I successfully was able to do a bedside incision and manage of the abscess with application of iodoform packing. Recommend daily dressing and packing changes. Recommend continued IV antibiotics. Follow for the next couple days.
[2018-01-01] MEDS: CEFTRIAXONE SODIUM 1,000 MG in DEXTROSE 5%-WATER 50 ML IV SCH (17:02)
--- NOTE | 2018-01-01 17:55 | PDOC PROGRESS REPORT ---
Subjective Progress Note for:: 01/01/18 Subjective:: BROOKE LANG is a 32 year old male with no significant past medical history aside form a history of MRSA infection of the right hand who was admitted for right knee cellulitis. He was not able to afford prescribe outpatient antibiotics from the ER hence came in with worsening right knee swelling and erythema. US of the knee showed a small abscess and patient just underwent bedside drainage by ortho today 01/01/18. No fever or chills. He complains of pain in the area after drainage. The erythema has remained stable and is not spreading. Reason For Visit: RIGHT KNEE CELLULITIS Physical Exam Vital Signs: Temp Pulse Resp BP Pulse Ox 98.6 F 81 16 134/73 H 99 01/01/18 15:12 01/01/18 15:12 01/01/18 15:12 01/01/18 15:12 01/01/18 15:12 Intake & Output 12/31/17 01/01/18 01/02/18 06:59 06:59 06:59 Intake Total 200 3174 1066 Output Total 2475 Balance 788 384 6489 Weight 158 lb 15.253 oz 163 lb 9.328 oz General appearance: PRESENT: no acute distress, well-developed, well-nourished Head exam: PRESENT: atraumatic, normocephalic Eye exam: PRESENT: conjunctiva pink, EOMI, PERRLA. ABSENT: scleral icterus Ear exam: PRESENT: normal external ear exam Mouth exam: PRESENT: moist, tongue midline Neck exam: ABSENT: carotid bruit, JVD, lymphadenopathy, thyromegaly Respiratory exam: PRESENT: clear to auscultation lexi. ABSENT: rales, rhonchi, wheezes Cardiovascular exam: PRESENT: RRR. ABSENT: diastolic murmur, rubs, systolic murmur Pulses: PRESENT: normal dorsalis pedis pul GI/Abdominal exam: PRESENT: normal bowel sounds, soft. ABSENT: distended, guarding, mass, organolmegaly, rebound, tenderness Rectal exam: PRESENT: deferred Extremities exam: PRESENT: tenderness - mild tenderness on right knee, dressing in place post drainage Neurological exam: PRESENT: alert, awake, oriented to person, oriented to place , oriented to time, oriented to situation, CN II-XII grossly intact. ABSENT: motor sensory deficit Results Laboratory Results: 01/01/18 13:42 01/01/18 13:42 Creatinine 0.73 Est GFR ( Amer) > 60 Est GFR (Non-Af Amer) > 60 Impressions: Extremity Ultrasound 12/31/17 11:04 IMPRESSION: Soft tissue edema. There appears to be a small abscess as described. Assessment & Plan - Diagnosis (1) Cellulitis of right knee Is this a current diagnosis for this admission?: Yes Plan: Continue vancomycin and Zosyn for now pending culture results. (2) Abscess of knee, right Is this a current diagnosis for this admission?: Yes Plan: US did show a small abscess (extra-articular). Patient had drainage of abscess today 01/01/18 by ortho. Continue IV antibiotics. De-escalate pending culture results. - Time Time Spent with patient: 15-24 minutes
[2018-01-01] MEDS: HYDROCODONE/ACETAMINOPHEN 7.5-325 MG TABLET PO PRN (21:32)
[2018-01-01] MEDS: VANCOMYCIN HCL 1,250 MG in DEXTROSE 5%-WATER 250 ML IV SCH (21:39)
[2018-01-02] MEDS: VANCOMYCIN HCL 1,250 MG in DEXTROSE 5%-WATER 250 ML IV SCH ×3 (05:34→21:11)
[2018-01-02] MEDS: HYDROCODONE/ACETAMINOPHEN 7.5-325 MG TABLET PO PRN ×3 (06:00→18:33)
[2018-01-02] MEDS: MORPHINE SULFATE 10 MG/ML INJ IV PRN ×3 (06:01→23:07)
[2018-01-02] MEDS: NORMAL SALINE 1000 ML 1,000 ML IV PRN (07:12)
[2018-01-02] MEDS: HEPARIN SOD (PORCINE) 5,000 UNIT/ML 1 ML SYRINGE SUBCUT SCH ×2 (09:55→21:10)
[2018-01-02] MEDS: OXYCODONE HCL SR 10 MG TABLET PO SCH ×2 (11:42→21:10)
--- NOTE | 2018-01-02 12:30 | PDOC PROGRESS REPORT ---
Subjective Progress Note for:: 01/02/18 Subjective:: Patient states the pressure from the abscess has relieved and the pain is slightly improved. He also states the swelling and redness is improved. Reason For Visit: RIGHT KNEE CELLULITIS Physical Exam Vital Signs: Temp Pulse Resp BP Pulse Ox 36.8 C 61 15 134/74 H 99 01/02/18 11:26 01/02/18 11:26 01/02/18 11:26 01/02/18 11:26 01/02/18 11:26 Intake & Output 01/01/18 01/02/18 01/03/18 06:59 06:59 06:59 Intake Total 3174 2005 1140 Output Total 2475 3150 Balance 699 -1144 1140 Weight 74.2 kg 74.2 kg Adult Front & Back Image: 1 - Dressing is dry clean and intact. Erythema around the dressing has significant improved within the markings and further. He is neurovascular intact distally with soft calves and negative Homans sign. Results Laboratory Results: 01/01/18 13:42 01/01/18 13:42 Creatinine 0.73 Est GFR ( Amer) > 60 Est GFR (Non-Af Amer) > 60 12/31/17 13:11 Nasophary ([facility] Only) MRSA Surveillance Culture - Final NO MRSA RECOVERED Impressions: Extremity Ultrasound 12/31/17 11:04 IMPRESSION: Soft tissue edema. There appears to be a small abscess as described. Assessment & Plan - Diagnosis (1) Abscess of knee, right Is this a current diagnosis for this admission?: Yes Plan: 32-year-old gentleman status post bedside I&D of a small superficial abscess from an ingrown hair. Since then the erythema and cellulitis has improved. Recommend continue dressing changes daily and IV antibiotics
--- NOTE | 2018-01-02 15:52 | PDOC PROGRESS REPORT ---
Subjective Progress Note for:: 01/02/18 Subjective:: BROOKE LANG is a 32 year old male with no significant past medical history aside form a history of MRSA infection of the right hand who was admitted for right knee cellulitis. He was not able to afford prescribe outpatient antibiotics from the ER hence came in with worsening right knee swelling and erythema. US of the knee showed a small abscess and patient underwent bedside drainage by ortho on 01/01/18. No acute event overnight. No fever or chills. He says the pain has slightly improved today. The erythema has slightly improved from yesterday. Dressing changed with RN and no significal purulent discharge was noticed on incised wound. Reason For Visit: RIGHT KNEE CELLULITIS Physical Exam Vital Signs: Temp Pulse Resp BP Pulse Ox 98.3 F 61 15 134/74 H 99 01/02/18 11:26 01/02/18 11:26 01/02/18 11:26 01/02/18 11:26 01/02/18 11:26 Intake & Output 01/01/18 01/02/18 01/03/18 06:59 06:59 06:59 Intake Total 3174 2006 1140 Output Total 2475 3150 Balance 699 -1144 1140 Weight 163 lb 9.328 oz 163 lb 9.328 oz Results Laboratory Results: 01/01/18 13:42 12/31/17 13:11 Nasophary ([facility] Only) MRSA Surveillance Culture - Final NO MRSA RECOVERED Impressions: Extremity Ultrasound 12/31/17 11:04 IMPRESSION: Soft tissue edema. There appears to be a small abscess as described. Assessment & Plan - Diagnosis (1) Cellulitis of right knee Is this a current diagnosis for this admission?: Yes Plan: Continue vancomycin and Rocephin for 2 more days. Cultures negative so far. Will re-evaluate knee tomorrow and see if he can be switched to PO. (2) Abscess of knee, right Is this a current diagnosis for this admission?: Yes Plan: US did show a small abscess (extra-articular). Patient had drainage of abscess on 01/01/18 by ortho. Continue IV antibiotics for 2 more days. - Time Time Spent with patient: 15-24 minutes
[2018-01-02] MEDS: CEFTRIAXONE SODIUM 1,000 MG in DEXTROSE 5%-WATER 50 ML IV SCH (17:15)
[2018-01-03] MEDS: HYDROCODONE/ACETAMINOPHEN 7.5-325 MG TABLET PO PRN ×2 (04:29→16:29)
[2018-01-03] MEDS: VANCOMYCIN HCL 1,250 MG in DEXTROSE 5%-WATER 250 ML IV SCH ×3 (06:16→21:20)
[2018-01-03 06:39] LABS: VANCOMYCIN,TROUGH 12.4 ug/mL (5.0-20.0)
[2018-01-03] MEDS: OXYCODONE HCL SR 10 MG TABLET PO SCH ×2 (09:18→21:20)
[2018-01-03] MEDS: HEPARIN SOD (PORCINE) 5,000 UNIT/ML 1 ML SYRINGE SUBCUT SCH ×2 (09:20→21:20)
[2018-01-03] MEDS: NORMAL SALINE 1000 ML 1,000 ML IV PRN (12:54)
[2018-01-03] MEDS: MORPHINE SULFATE 10 MG/ML INJ IV PRN ×2 (12:54→21:57)
--- NOTE | 2018-01-03 14:55 | PDOC PROGRESS REPORT ---
Subjective Progress Note for:: 01/03/18 Subjective:: BROOKE LANG is a 32 year old male with no significant past medical history aside form a history of MRSA infection of the right hand who was admitted for right knee cellulitis. He was not able to afford prescribe outpatient antibiotics from the ER hence came in with worsening right knee swelling and erythema. US of the knee showed a small abscess and patient underwent bedside drainage by ortho on 01/01/18. No acute event overnight. No fever or chills. He says the pain continues to improve. The erythema has minimally improved from yesterday. No significant purulent discharge was noticed on incised wound. Reason For Visit: RIGHT KNEE CELLULITIS Physical Exam Vital Signs: Temp Pulse Resp BP Pulse Ox 98.0 F 58 L 16 132/80 H 100 01/03/18 10:57 01/03/18 10:57 01/03/18 10:57 01/03/18 10:57 01/03/18 10:57 Intake & Output 01/02/18 01/03/18 01/04/18 06:59 06:59 06:59 Intake Total 2005 4672 194 Output Total 3150 4605 Balance -1144 67 194 Weight 163 lb 9.328 oz 165 lb 12.602 oz Results Laboratory Results: 01/03/18 05:38 01/03/18 05:38 Creatinine 0.73 Est GFR ( Amer) > 60 Est GFR (Non-Af Amer) > 60 Impressions: Extremity Ultrasound 12/31/17 11:04 IMPRESSION: Soft tissue edema. There appears to be a small abscess as described. Assessment & Plan - Diagnosis (1) Cellulitis of right knee Is this a current diagnosis for this admission?: Yes Plan: Knee culture came grew MRSA today. Discontinue Rocephin. Continue vancomycin for now. (2) Abscess of knee, right Is this a current diagnosis for this admission?: Yes Plan: US did show a small abscess (extra-articular). Patient had drainage of abscess on 01/01/18 by ortho. See #1. - Time Time Spent with patient: 15-24 minutes
[2018-01-03] MEDS: CEFTRIAXONE SODIUM 1,000 MG in DEXTROSE 5%-WATER 50 ML IV SCH (17:16)
[2018-01-04] MEDS: HYDROCODONE/ACETAMINOPHEN 7.5-325 MG TABLET PO PRN ×3 (06:18→19:51)
[2018-01-04] MEDS: VANCOMYCIN HCL 1,250 MG in DEXTROSE 5%-WATER 250 ML IV SCH ×3 (06:19→22:06)
[2018-01-04] MEDS: OXYCODONE HCL SR 10 MG TABLET PO SCH ×2 (09:52→22:06)
[2018-01-04] MEDS: HEPARIN SOD (PORCINE) 5,000 UNIT/ML 1 ML SYRINGE SUBCUT SCH ×2 (09:53→22:05)
--- NOTE | 2018-01-04 10:38 | PDOC PROGRESS REPORT ---
Subjective Progress Note for:: 01/04/18 Subjective:: 32-year-old male history of right hand MRSA infection who was admitted for worsening right knee tenderness. On admission he stated that he had an ingrown hair on the right knee which started with a small erythema around 3 days prior to admission. He came to ED because of worsening tenderness and erythema of the left knee. An ultrasound of the knee showed small abscess and patient underwent bedside drainage by Patrick O on 01/01/2018. 01/04/2018. On my encounter patient is sitting in bed while being visited by ortho. His right knee is exposed and there is minimal sign of erythema and active discharge. Patient is stating that his pain is controlled and denies any acute events overnight. Patient is p.o. tolerant and taking his medications. He denies any fever, chills, nausea, vomiting, chest pain, diarrhea, constipation or any urinary symptoms. Reason For Visit: RIGHT KNEE ABSCESS Physical Exam Vital Signs: Temp Pulse Resp BP Pulse Ox 97.7 F 92 16 123/70 98 01/04/18 07:43 01/04/18 07:43 01/04/18 07:43 01/04/18 07:43 01/04/18 07:43 Intake & Output 01/03/18 01/04/18 01/05/18 06:59 06:59 06:59 Intake Total 2310 250 Output Total 3625 Balance -1315 250 Weight 75.2 kg General appearance: PRESENT: no acute distress, well-developed, well-nourished Head exam: PRESENT: atraumatic, normocephalic Eye exam: PRESENT: conjunctiva pink, EOMI, PERRLA. ABSENT: scleral icterus Ear exam: PRESENT: normal external ear exam Mouth exam: PRESENT: moist, tongue midline Neck exam: ABSENT: carotid bruit, JVD, lymphadenopathy, thyromegaly Respiratory exam: PRESENT: clear to auscultation lexi. ABSENT: rales, rhonchi, wheezes Cardiovascular exam: PRESENT: RRR. ABSENT: diastolic murmur, rubs, systolic murmur Pulses: PRESENT: normal dorsalis pedis pul Vascular exam: PRESENT: normal capillary refill GI/Abdominal exam: PRESENT: normal bowel sounds, soft. ABSENT: distended, guarding, mass, organolmegaly, rebound, tenderness Rectal exam: PRESENT: deferred Extremities exam: PRESENT: full ROM. ABSENT: calf tenderness, clubbing, pedal edema Musculoskeletal exam: PRESENT: full ROM, other - Right knee is a status post drainage by Vic. Upon inspection erythema is improving. No active discharge. Neurological exam: PRESENT: alert, awake, oriented to person, oriented to place , oriented to time, oriented to situation, CN II-XII grossly intact. ABSENT: motor sensory deficit Psychiatric exam: PRESENT: appropriate affect, normal mood. ABSENT: homicidal ideation, suicidal ideation Skin exam: PRESENT: dry, intact, warm. ABSENT: cyanosis, rash Results Impressions: Extremity Ultrasound 12/31/17 11:04 IMPRESSION: Soft tissue edema. There appears to be a small abscess as described. Assessment & Plan - Diagnosis (1) Abscess of knee, right Is this a current diagnosis for this admission?: Yes Plan: Culture growing MRSA. KENDRICK Purvis today. Continue vancomycin, wound care, physical therapy, and DVT prophylaxis. Pending ID consult for length of therapy. Ultrasound of the right knee showed extra-articular. Small abscess which was drained by Patrick O on 01/01/2018. (2) MRSA (methicillin resistant Staphylococcus aureus) carrier Is this a current diagnosis for this admission?: Yes Plan: She has a history of right hand MRSA infection. Pending nasal swab for staph aureus. If positive will go ahead with decolonization.
--- NOTE | 2018-01-04 17:42 | Progress Note ---
Provider Note Provider Note: ID Consult Note- I was asked to review the patient's chart and give recommendations regarding duration of antibiotic therapy. The patient has had an I&D of a skin abscess of the knee. Cultures grew MRSA, which was susceptible to TMP-SMX and clindamycin. Blood cultures were negative. The patient is currently receiving vancomycin IV. Given that the patient did not have MRSA bacteremia and has had source control with the drainage procedure, there is no evidence that continuing IV antibiotics is superior to oral antibiotics. Would consider stopping vancomycin and sending home with oral Bactrim DS- one tab BID or oral clindamycin 300 mg TID. Either agent should be adequate as long as the patient has clinically improved since being admitted. He should likely be treated for a total of 7-10 days (counting the days that he has received vancomycin). Please contact me if there are questions. Darryl Hoffmann MD Pager: [phone]
[2018-01-04] MEDS: NORMAL SALINE 1000 ML 1,000 ML IV PRN (17:43)
[2018-01-04] MEDS: MORPHINE SULFATE 10 MG/ML INJ IV PRN (23:29)
[2018-01-05] MEDS: HYDROCODONE/ACETAMINOPHEN 7.5-325 MG TABLET PO PRN ×3 (01:29→14:52)
[2018-01-05] MEDS: MORPHINE SULFATE 10 MG/ML INJ IV PRN ×2 (04:42→21:37)
[2018-01-05 05:16] LABS: HEMATOCRIT 46.1 % (37.9-51.0); HEMOGLOBIN 15.4 g/dL (13.5-17.0); MEAN CORPUSCULAR HEMOGLOBIN 28.1 pg (27.0-33.4); MEAN CORPUSCULAR HGB CONC 33.5 g/dL (32.0-36.0); MEAN CORPUSCULAR VOLUME 84 fl (80-97); PLATELET COUNT 282 10^3/uL (150-450); RED BLOOD COUNT 5.48 10^6/uL (4.35-5.55); WHITE BLOOD COUNT 11.1 10^3/uL (4.0-10.5)
[2018-01-05 05:35] LABS: ABSOLUTE LYMPHOCYTES# (MANUAL) 3.7 10^3/uL (0.5-4.7); ABSOLUTE NEUTROPHILS# (MANUAL) 5.6 10^3/uL (1.7-8.2); BASOPHILS % (MANUAL) 0 % (0-2); EOSINOPHILS % (MANUAL) 8 % (0-6); LYMPHOCYTES % (MANUAL) 31 % (13-45); MONOCYTES % (MANUAL) 9 % (3-13); SEGMENTED NEUTROPHILS % (MAN) 50 % (42-78); TOTAL CELLS COUNTED 100
[2018-01-05 05:36] LABS: ANISOCYTOSIS SLIGHT; POLYCHROMASIA SLIGHT
[2018-01-05 05:37] LABS: PLATELET COMMENT ADEQUATE
[2018-01-05 05:44] LABS: ALANINE AMINOTRANSFERASE 76 U/L (21-72); ALBUMIN 4.1 g/dL (3.5-5.0); ALKALINE PHOSPHATASE 79 U/L (38-126); ANION GAP 11 (5-19); ASPARTATE AMINO TRANSFERASE 57 U/L (17-59); BILIRUBIN,DIRECT 0.2 mg/dL (0.0-0.4); BILIRUBIN,TOTAL 0.3 mg/dL (0.2-1.3); BLOOD UREA NITROGEN 18 mg/dL (7-20); CALCIUM 10.2 mg/dL (8.4-10.2); CARBON DIOXIDE 28 mmol/L (22-30); CHLORIDE 100 mmol/L (98-107); GLUCOSE 111 mg/dL (75-110); POTASSIUM 5.6 mmol/L (3.6-5.0); SODIUM 138.6 mmol/L (137-145); TOTAL PROTEIN 7.4 g/dL (6.3-8.2)
[2018-01-05] MEDS: VANCOMYCIN HCL 1,250 MG in DEXTROSE 5%-WATER 250 ML IV SCH (06:22)
[2018-01-05] MEDS: HEPARIN SOD (PORCINE) 5,000 UNIT/ML 1 ML SYRINGE SUBCUT SCH ×2 (09:31→21:37)
[2018-01-05] MEDS: OXYCODONE HCL SR 10 MG TABLET PO SCH ×2 (09:32→21:38)
[2018-01-05] MEDS ORDERED: CALCIUM GLUCONATE 1,000 MG in DEXTROSE 5%-WATER 50 ML IV ONE (10:55)
--- NOTE | 2018-01-05 11:15 | PDOC PROGRESS REPORT ---
Subjective Progress Note for:: 01/05/18 Subjective:: 32-year-old male history of right hand MRSA infection who was admitted for worsening right knee tenderness. On admission he stated that he had an ingrown hair on the right knee which started with a small erythema around 3 days prior to admission. He came to ED because of worsening tenderness and erythema of the left knee. An ultrasound of the knee showed small abscess and patient underwent bedside drainage by Patrick O on 01/01/2018. 01/04/2018. On my encounter patient is sitting in bed while being visited by ortho. His right knee is exposed and there is minimal sign of erythema and active discharge. Patient is stating that his pain is controlled and denies any acute events overnight. Patient is p.o. tolerant and taking his medications. He denies any fever, chills, nausea, vomiting, chest pain, diarrhea, constipation or any urinary symptoms. 01/05/2018. Acute events overnight. On my encounter patient is sitting in bed does not seem to be in any acute distress. He is stating that his knee pain has been better. He denies any fever, chills, nausea, vomiting, diarrhea, constipation, shortness of breath or any urinary symptoms. ID was consulted about continuation of his antibiotic history. They are recommending him to be switched from vancomycin to either clindamycin or Bactrim. Patient is still stating that he will not be able to afford his medications. Will consult discharge planners to see if he could be provided with some help. Reason For Visit: RIGHT KNEE ABSCESS Physical Exam Vital Signs: Temp Pulse Resp BP Pulse Ox 97.4 F 80 16 139/86 H 97 01/05/18 07:19 01/05/18 07:19 01/05/18 07:19 01/05/18 07:19 01/05/18 07:19 Intake & Output 01/04/18 01/05/18 01/06/18 06:59 06:59 06:59 Intake Total 2310 3796 250 Output Total 7336 4379 Balance -1315 -61 250 Weight 75.2 kg 75.2 kg General appearance: PRESENT: no acute distress, well-developed, well-nourished Head exam: PRESENT: atraumatic, normocephalic Eye exam: PRESENT: conjunctiva pink, EOMI, PERRLA. ABSENT: scleral icterus Ear exam: PRESENT: normal external ear exam Mouth exam: PRESENT: moist, tongue midline Neck exam: ABSENT: carotid bruit, JVD, lymphadenopathy, thyromegaly Respiratory exam: PRESENT: clear to auscultation lexi. ABSENT: rales, rhonchi, wheezes Cardiovascular exam: PRESENT: RRR. ABSENT: diastolic murmur, rubs, systolic murmur Pulses: PRESENT: normal dorsalis pedis pul Vascular exam: PRESENT: normal capillary refill GI/Abdominal exam: PRESENT: normal bowel sounds, soft. ABSENT: distended, guarding, mass, organolmegaly, rebound, tenderness Rectal exam: PRESENT: deferred Extremities exam: PRESENT: full ROM. ABSENT: calf tenderness, clubbing, pedal edema Musculoskeletal exam: PRESENT: full ROM, tenderness - Left knee is covered in dressing. No sign of active discharge. There is mild tenderness over palpation of the medial aspect of the knee. Erythema over anterior rasmussen from yesterday has disappeared. Neurological exam: PRESENT: alert, awake, oriented to person, oriented to place , oriented to time, oriented to situation, CN II-XII grossly intact. ABSENT: motor sensory deficit Psychiatric exam: PRESENT: appropriate affect, normal mood. ABSENT: homicidal ideation, suicidal ideation Skin exam: PRESENT: dry, intact, warm. ABSENT: cyanosis, rash Results Laboratory Results: 01/05/18 04:20 01/05/18 04:20 01/05/18 01/05/18 04:20 04:20 WBC 11.1 H RBC 5.48 Hgb 15.4 Hct 46.1 MCV 84 MCH 28.1 MCHC 33.5 RDW 15.0 H Plt Count 282 Seg Neutrophils % Not Reportable Lymphocytes % Not Reportable Monocytes % Not Reportable Eosinophils % Not Reportable Basophils % Not Reportable Absolute Neutrophils Not Reportable Absolute Lymphocytes Not Reportable Absolute Monocytes Not Reportable Absolute Eosinophils Not Reportable Absolute Basophils Not Reportable Sodium 138.6 Potassium 5.6 H Chloride 100 Carbon Dioxide 28 Anion Gap 11 BUN 18 Creatinine 0.80 Est GFR ( Amer) > 60 Est GFR (Non-Af Amer) > 60 Glucose 111 H Calcium 10.2 Total Bilirubin 0.3 AST 57 ALT 76 H Alkaline Phosphatase 79 Total Protein 7.4 Albumin 4.1 Impressions: Extremity Ultrasound 12/31/17 11:04 IMPRESSION: Soft tissue edema. There appears to be a small abscess as described. Assessment & Plan - Diagnosis (1) Abscess of knee, right Is this a current diagnosis for this admission?: Yes Plan: Culture growing MRSA sensitive to Bactrim and clindamycin. Rocephin was discontinued yesterday. As per ID recommendation will DC vancomycin and switch to Bactrim DS for another 8 days to complete total of 10 days. Last dosage will be on 01/13/2018. Continue wound care, physical therapy, and DVT prophylaxis. Ultrasound of the right knee showed extra-articular. Small abscess which was drained by Orth on 01/01/2018. (2) MRSA (methicillin resistant Staphylococcus aureus) carrier Is this a current diagnosis for this admission?: Yes (3) Hyperkalemia Is this a current diagnosis for this admission?: Yes Plan: Unknown cause. Blood sample was not hemolyzed as per chemistry. Started on hyperkalemia protocol. BMP in the afternoon. (4) Hypertension Is this a current diagnosis for this admission?: Yes Plan: Systolic blood pressure has been running in 140s and 150s. Will start low-dose amlodipine and adjust medication as needed. Patient is to follow-up with PCP to adjust his medication.
[2018-01-05] MEDS ORDERED: ALBUTEROL SULFATE 0.083% NEB 2.5 MG/3 ML AMPUL NEB ONE (11:30)
[2018-01-05] MEDS ORDERED: CALCIUM GLUCONATE 1000 MG/10 ML INJ IV ONE (11:30)
[2018-01-05] MEDS: AMLODIPINE BESYLATE 2.5 MG TABLET PO SCH (11:41)
[2018-01-05] MEDS: SULFAMETHOXAZOLE/TRIMETHOPRIM 800-160 MG TABLET PO SCH ×2 (11:41→21:38)
[2018-01-05] MEDS ORDERED: DEXTROSE 50%-WATER 25 GM/50 ML DISP.SYRIN IV ONE (12:00)
[2018-01-05] MEDS ORDERED: SODIUM POLYSTYRENE SULFONATE 15 GM/60 ML PO ONE (12:00)
[2018-01-05] MEDS ORDERED: INSULIN REG, HUMAN 100 UNIT/ML 3 ML VIAL (PYX) IV ONE (12:00)
--- NOTE | 2018-01-05 13:00 | EKG REPORT ---
SEVERITY:- BORDERLINE ECG - SINUS RHYTHM ST ELEVATION SUGGESTS NORMAL VARIANT : Confirmed by: Galileo Pulido MD 05-Jan-2018 12:59:31
[2018-01-05 14:44] LABS: ANION GAP 15 (5-19); BLOOD UREA NITROGEN 18 mg/dL (7-20); CALCIUM 10.9 mg/dL (8.4-10.2); CARBON DIOXIDE 26 mmol/L (22-30); CHLORIDE 99 mmol/L (98-107); POTASSIUM 5.2 mmol/L (3.6-5.0); SODIUM 139.9 mmol/L (137-145)
[2018-01-05 15:13] LABS: GLUCOSE 32 mg/dL (75-110)
--- NOTE | 2018-01-05 17:41 | PDOC PROGRESS REPORT ---
Subjective Progress Note for:: 01/05/18 Subjective:: Redness has resolved and patient's pain is significantly improved. Dressing is dry clean and intact and the patient states no issues overnight Reason For Visit: RIGHT KNEE ABSCESS Physical Exam Vital Signs: Temp Pulse Resp BP Pulse Ox 36.7 C 75 12 146/83 H 96 01/05/18 15:29 01/05/18 15:29 01/05/18 11:57 01/05/18 15:29 01/05/18 15:29 Intake & Output 01/04/18 01/05/18 01/06/18 06:59 06:59 06:59 Intake Total 2310 2864 250 Output Total 3627 2925 Balance -1315 -61 250 Weight 75.2 kg 75.2 kg Adult Front & Back Image: 1 - The dressing was removed and the iodoform packing was removed. There is no drainage. There is no erythema. Swelling significantly improved. Neurovascular intact distally. Results Laboratory Results: 01/05/18 04:20 01/05/18 13:20 01/05/18 01/05/18 01/05/18 04:20 04:20 13:20 WBC 11.1 H RBC 5.48 Hgb 15.4 Hct 46.1 MCV 84 MCH 28.1 MCHC 33.5 RDW 15.0 H Plt Count 282 Seg Neutrophils % Not Reportable Lymphocytes % Not Reportable Monocytes % Not Reportable Eosinophils % Not Reportable Basophils % Not Reportable Absolute Neutrophils Not Reportable Absolute Lymphocytes Not Reportable Absolute Monocytes Not Reportable Absolute Eosinophils Not Reportable Absolute Basophils Not Reportable Sodium 138.6 139.9 Potassium 5.6 H 5.2 H Chloride 100 99 Carbon Dioxide 28 26 Anion Gap 11 15 BUN 18 18 Creatinine 0.80 0.72 Est GFR ( Amer) > 60 > 60 Est GFR (Non-Af Amer) > 60 > 60 Glucose 111 H 32 L* Calcium 10.2 10.9 H Total Bilirubin 0.3 AST 57 ALT 76 H Alkaline Phosphatase 79 Total Protein 7.4 Albumin 4.1 Impressions: Extremity Ultrasound 12/31/17 11:04 IMPRESSION: Soft tissue edema. There appears to be a small abscess as described. Assessment & Plan - Diagnosis (1) Abscess of knee, right Is this a current diagnosis for this admission?: Yes - Plan Summary Plan Summary: 32-year-old gentleman status post bedside I&D of superficial abscess second to a ingrown hair. Cultures came back as MRSA. As per recommendation of infectious disease patient has been switched to Bactrim DS. Wound is clean dry intact and now can be treated with wet-to-dry dressing instead. Erythema is resolving nicely. I agree the patient can be discharged when medically stable on p.o. antibiotics and follow-up in the office in 2 weeks with instruction to do daily wet-to-dry dressings to that small incision.
[2018-01-06] MEDS: MORPHINE SULFATE 10 MG/ML INJ IV PRN (06:17)
[2018-01-06] MEDS: HYDROCODONE/ACETAMINOPHEN 7.5-325 MG TABLET PO PRN ×2 (06:17→18:17)
[2018-01-06] MEDS: NORMAL SALINE 1000 ML 1,000 ML IV PRN (06:27)
[2018-01-06 06:52] LABS: HEMATOCRIT 45.1 % (37.9-51.0); HEMOGLOBIN 15.1 g/dL (13.5-17.0); MEAN CORPUSCULAR HEMOGLOBIN 28.2 pg (27.0-33.4); MEAN CORPUSCULAR HGB CONC 33.5 g/dL (32.0-36.0); MEAN CORPUSCULAR VOLUME 84 fl (80-97); PLATELET COUNT 287 10^3/uL (150-450); RED BLOOD COUNT 5.35 10^6/uL (4.35-5.55); RED CELL DISTRIBUTION WIDTH 14.9 % (11.5-14.0); WHITE BLOOD COUNT 12.9 10^3/uL (4.0-10.5)
[2018-01-06 07:15] LABS: ALANINE AMINOTRANSFERASE 129 U/L (21-72); ALBUMIN 4.2 g/dL (3.5-5.0); ALKALINE PHOSPHATASE 74 U/L (38-126); ANION GAP 11 (5-19); ASPARTATE AMINO TRANSFERASE 76 U/L (17-59); BILIRUBIN,DIRECT 0.2 mg/dL (0.0-0.4); BILIRUBIN,TOTAL 0.3 mg/dL (0.2-1.3); BLOOD UREA NITROGEN 18 mg/dL (7-20); CARBON DIOXIDE 28 mmol/L (22-30); CHLORIDE 99 mmol/L (98-107); GLUCOSE 93 mg/dL (75-110); POTASSIUM 5.1 mmol/L (3.6-5.0); SODIUM 137.6 mmol/L (137-145); TOTAL PROTEIN 7.3 g/dL (6.3-8.2)
[2018-01-06 07:19] LABS: ABSOLUTE LYMPHOCYTES# (MANUAL) 3.2 10^3/uL (0.5-4.7); ABSOLUTE MONOCYTES # (MANUAL) 1.7 10^3/uL (0.1-1.4); ABSOLUTE NEUTROPHILS# (MANUAL) 7.5 10^3/uL (1.7-8.2); BAND NEUTROPHILS % (MANUAL) 2 % (3-5); BASOPHILS % (MANUAL) 0 % (0-2); EOSINOPHILS % (MANUAL) 4 % (0-6); LYMPHOCYTES % (MANUAL) 22 % (13-45); METAMYELOCYTES % (MANUAL) 2 % (0); MONOCYTES % (MANUAL) 13 % (3-13); SEGMENTED NEUTROPHILS % (MAN) 54 % (42-78); TOTAL CELLS COUNTED 100
[2018-01-06 07:20] LABS: ANISOCYTOSIS SLIGHT; PLATELET COMMENT ADEQUATE; PLATELET LARGE PRESENT; SCHISTOCYTES SLIGHT
[2018-01-06] MEDS: OXYCODONE HCL SR 10 MG TABLET PO SCH ×2 (10:26→21:36)
[2018-01-06] MEDS: AMLODIPINE BESYLATE 2.5 MG TABLET PO SCH (10:28)
[2018-01-06] MEDS: SULFAMETHOXAZOLE/TRIMETHOPRIM 800-160 MG TABLET PO SCH ×2 (10:29→21:35)
[2018-01-06] MEDS: HEPARIN SOD (PORCINE) 5,000 UNIT/ML 1 ML SYRINGE SUBCUT SCH ×2 (10:29→21:33)
[2018-01-06] MEDS ORDERED: SODIUM POLYSTYRENE SULFONATE 15 GM/60 ML PO ONE ×2 (10:30→16:52)
[2018-01-06 16:18] LABS: ANION GAP 11 (5-19); BLOOD UREA NITROGEN 18 mg/dL (7-20); CALCIUM 9.8 mg/dL (8.4-10.2); CARBON DIOXIDE 29 mmol/L (22-30); CHLORIDE 99 mmol/L (98-107); GLUCOSE 86 mg/dL (75-110); POTASSIUM 5.6 mmol/L (3.6-5.0)
[2018-01-06] MEDS ORDERED: CALCIUM GLUCONATE 1000 MG/10 ML INJ IV ONE (16:52)
[2018-01-06] MEDS: ALBUTEROL SULFATE 0.083% NEB 2.5 MG/3 ML AMPUL NEB SCH ×2 (17:22→19:00)
--- NOTE | 2018-01-06 18:28 | EKG REPORT ---
SEVERITY:- NORMAL ECG - SINUS RHYTHM : Confirmed by: Galileo Pulido MD 06-Jan-2018 18:27:51
[2018-01-06] MEDS ORDERED: LACTULOSE SYRUP 20 GM/30 ML UDCUP PO ONE ×2 (20:00→21:30)
[2018-01-07 05:25] LABS: HEMOGLOBIN 14.6 g/dL (13.5-17.0); MEAN CORPUSCULAR HEMOGLOBIN 28.4 pg (27.0-33.4); MEAN CORPUSCULAR HGB CONC 33.2 g/dL (32.0-36.0); MEAN CORPUSCULAR VOLUME 86 fl (80-97); PLATELET COUNT 251 10^3/uL (150-450); RED BLOOD COUNT 5.15 10^6/uL (4.35-5.55); RED CELL DISTRIBUTION WIDTH 15.2 % (11.5-14.0); WHITE BLOOD COUNT 14.9 10^3/uL (4.0-10.5)
[2018-01-07 05:41] LABS: ALANINE AMINOTRANSFERASE 157 U/L (21-72); ALKALINE PHOSPHATASE 80 U/L (38-126); ANION GAP 12 (5-19); ASPARTATE AMINO TRANSFERASE 91 U/L (17-59); BILIRUBIN,DIRECT 0.2 mg/dL (0.0-0.4); BILIRUBIN,TOTAL 0.4 mg/dL (0.2-1.3); BLOOD UREA NITROGEN 16 mg/dL (7-20); CALCIUM 9.8 mg/dL (8.4-10.2); CARBON DIOXIDE 26 mmol/L (22-30); CHLORIDE 101 mmol/L (98-107); GLUCOSE 114 mg/dL (75-110); SODIUM 138.8 mmol/L (137-145); TOTAL PROTEIN 7.2 g/dL (6.3-8.2)
[2018-01-07 05:49] LABS: ABSOLUTE LYMPHOCYTES# (MANUAL) 2.7 10^3/uL (0.5-4.7); ABSOLUTE MONOCYTES # (MANUAL) 0.7 10^3/uL (0.1-1.4); BAND NEUTROPHILS % (MANUAL) 7 % (3-5); BASOPHILS % (MANUAL) 0 % (0-2); EOSINOPHILS % (MANUAL) 3 % (0-6); LYMPHOCYTES % (MANUAL) 15 % (13-45); METAMYELOCYTES % (MANUAL) 1 % (0); MONOCYTES % (MANUAL) 5 % (3-13); SEGMENTED NEUTROPHILS % (MAN) 66 % (42-78); TOTAL CELLS COUNTED 100
[2018-01-07 05:50] LABS: ANISOCYTOSIS SLIGHT; PLATELET COMMENT ADEQUATE; TOXIC VACUOLATION PRESENT
[2018-01-07 05:51] LABS: POTASSIUM 4.6 mmol/L (3.6-5.0)
[2018-01-07] MEDS: HEPARIN SOD (PORCINE) 5,000 UNIT/ML 1 ML SYRINGE SUBCUT SCH ×2 (09:53→21:22)
[2018-01-07] MEDS: OXYCODONE HCL SR 10 MG TABLET PO SCH ×2 (09:56→21:23)
[2018-01-07] MEDS: AMLODIPINE BESYLATE 2.5 MG TABLET PO SCH (09:57)
[2018-01-07] MEDS: SULFAMETHOXAZOLE/TRIMETHOPRIM 800-160 MG TABLET PO SCH ×2 (09:57→21:23)
[2018-01-07] MEDS ORDERED: AMLODIPINE BESYLATE 2.5 MG TABLET PO SCH (12:44)
--- NOTE | 2018-01-07 12:48 | PDOC PROGRESS REPORT ---
Subjective Progress Note for:: 01/06/18 Subjective:: 32-year-old male history of right hand MRSA infection who was admitted for worsening right knee tenderness. On admission he stated that he had an ingrown hair on the right knee which started with a small erythema around 3 days prior to admission. He came to ED because of worsening tenderness and erythema of the left knee. An ultrasound of the knee showed small abscess and patient underwent bedside drainage by Patrick Saeed on 01/01/2018. 01/04/2018. On my encounter patient is sitting in bed while being visited by ortho. His right knee is exposed and there is minimal sign of erythema and active discharge. Patient is stating that his pain is controlled and denies any acute events overnight. Patient is p.o. tolerant and taking his medications. He denies any fever, chills, nausea, vomiting, chest pain, diarrhea, constipation or any urinary symptoms. 01/05/2018. Acute events overnight. On my encounter patient is sitting in bed does not seem to be in any acute distress. He is stating that his knee pain has been better. He denies any fever, chills, nausea, vomiting, diarrhea, constipation, shortness of breath or any urinary symptoms. ID was consulted about continuation of his antibiotic history. They are recommending him to be switched from vancomycin to either clindamycin or Bactrim. Patient is still stating that he will not be able to afford his medications. Will consult discharge planners to see if he could be provided with some help. 01/06/2018. No acute events overnight. On my encounter patient is comfortably resting in the bed. Denies any fever, chills, nausea, vomiting, diarrhea, constipation or any urinary symptoms. Patient was evaluated by Patrick Saeed yesterday and the plan was to discharge patient home with p.o. antibiotics to follow-up with Patrick Saeed in 2 weeks. Reason For Visit: RIGHT KNEE ABSCESS Physical Exam Vital Signs: Temp Pulse Resp BP Pulse Ox 98.4 F 70 15 137/74 H 97 01/07/18 11:08 01/07/18 11:08 01/07/18 11:08 01/07/18 11:08 01/07/18 11:08 Intake & Output 01/06/18 01/07/18 01/08/18 06:59 06:59 06:59 Intake Total 1750 1952 1000 Output Total 1200 2875 Balance 550 -923 1000 Weight 73 kg 73 kg General appearance: PRESENT: no acute distress, well-developed, well-nourished Head exam: PRESENT: atraumatic, normocephalic Eye exam: PRESENT: conjunctiva pink, EOMI, PERRLA. ABSENT: scleral icterus Ear exam: PRESENT: normal external ear exam Mouth exam: PRESENT: moist, tongue midline Neck exam: ABSENT: carotid bruit, JVD, lymphadenopathy, thyromegaly Respiratory exam: PRESENT: clear to auscultation lexi. ABSENT: rales, rhonchi, wheezes Cardiovascular exam: PRESENT: RRR. ABSENT: diastolic murmur, rubs, systolic murmur Pulses: PRESENT: normal dorsalis pedis pul Vascular exam: PRESENT: normal capillary refill GI/Abdominal exam: PRESENT: normal bowel sounds, soft. ABSENT: distended, guarding, mass, organolmegaly, rebound, tenderness Rectal exam: PRESENT: deferred Extremities exam: PRESENT: full ROM. ABSENT: calf tenderness, clubbing, pedal edema Neurological exam: PRESENT: alert, awake, oriented to person, oriented to place , oriented to time, oriented to situation, CN II-XII grossly intact. ABSENT: motor sensory deficit Psychiatric exam: PRESENT: appropriate affect, normal mood. ABSENT: homicidal ideation, suicidal ideation Skin exam: PRESENT: dry, intact, warm. ABSENT: cyanosis, rash Results Laboratory Results: 01/07/18 05:05 01/07/18 05:05 01/06/18 01/07/18 01/07/18 15:44 05:05 05:05 WBC 14.9 H RBC 5.15 Hgb 14.6 Hct 44.0 MCV 86 MCH 28.4 MCHC 33.2 RDW 15.2 H Plt Count 251 Seg Neutrophils % Not Reportable Lymphocytes % Not Reportable Monocytes % Not Reportable Eosinophils % Not Reportable Basophils % Not Reportable Absolute Neutrophils Not Reportable Absolute Lymphocytes Not Reportable Absolute Monocytes Not Reportable Absolute Eosinophils Not Reportable Absolute Basophils Not Reportable Sodium 139.0 138.8 Potassium 5.6 H 4.6 D Chloride 99 101 Carbon Dioxide 29 26 Anion Gap 11 12 BUN 18 16 Creatinine 1.02 0.97 Est GFR ( Amer) > 60 > 60 Est GFR (Non-Af Amer) > 60 > 60 Glucose 86 114 H Calcium 9.8 9.8 Total Bilirubin 0.4 AST 91 H ALT 157 H Alkaline Phosphatase 80 Total Protein 7.2 Albumin 4.0 Impressions: Extremity Ultrasound 12/31/17 11:04 IMPRESSION: Soft tissue edema. There appears to be a small abscess as described. Assessment & Plan - Diagnosis (1) Abscess of knee, right Is this a current diagnosis for this admission?: Yes Plan: Culture growing MRSA sensitive to Bactrim and clindamycin. Rocephin was discontinued yesterday. As per ID recommendation will DC vancomycin and switch to Bactrim DS for another 8 days to complete total of 10 days. Last dosage will be on 01/13/2018. Continue wound care, physical therapy, and DVT prophylaxis. Ultrasound of the right knee showed extra-articular. Small abscess which was drained by Orth on 01/01/2018. (2) MRSA (methicillin resistant Staphylococcus aureus) carrier Is this a current diagnosis for this admission?: Yes Plan: She has a history of right hand MRSA infection. Pending nasal swab for staph aureus. If positive will go ahead with decolonization. (3) Hyperkalemia Is this a current diagnosis for this admission?: Yes Plan: Unknown cause. Possibly diet related. Patient has been drinking excessive canned fruit juices. Blood sample was not hemolyzed as per chemistry. Started on hyperkalemia protocol. BMP in the afternoon. (4) Hypertension Is this a current diagnosis for this admission?: Yes Plan: Systolic blood pressure has been running in 140s and 150s. Will start low-dose amlodipine and adjust medication as needed. Patient is to follow-up with PCP to adjust his medication.
--- NOTE | 2018-01-07 12:53 | PDOC PROGRESS REPORT ---
Subjective Progress Note for:: 01/07/18 Subjective:: 32-year-old male history of right hand MRSA infection who was admitted for worsening right knee tenderness. On admission he stated that he had an ingrown hair on the right knee which started with a small erythema around 3 days prior to admission. He came to ED because of worsening tenderness and erythema of the left knee. An ultrasound of the knee showed small abscess and patient underwent bedside drainage by Patrick Saeed on 01/01/2018. 01/04/2018. On my encounter patient is sitting in bed while being visited by ortho. His right knee is exposed and there is minimal sign of erythema and active discharge. Patient is stating that his pain is controlled and denies any acute events overnight. Patient is p.o. tolerant and taking his medications. He denies any fever, chills, nausea, vomiting, chest pain, diarrhea, constipation or any urinary symptoms. 01/05/2018. Acute events overnight. On my encounter patient is sitting in bed does not seem to be in any acute distress. He is stating that his knee pain has been better. He denies any fever, chills, nausea, vomiting, diarrhea, constipation, shortness of breath or any urinary symptoms. ID was consulted about continuation of his antibiotic history. They are recommending him to be switched from vancomycin to either clindamycin or Bactrim. Patient is still stating that he will not be able to afford his medications. Will consult discharge planners to see if he could be provided with some help. 01/06/2018. No acute events overnight. On my encounter patient is comfortably resting in the bed. Denies any fever, chills, nausea, vomiting, diarrhea, constipation or any urinary symptoms. Patient was evaluated by Patrick Saeed yesterday and the plan was to discharge patient home with p.o. antibiotics to follow-up with Patrick Saeed in 2 weeks. 01/07/2018. No acute events overnight. On my encounter patient is sitting in bed denies any left lower extremity pain. Patient states she had a good night sleep overnight and he has been p.o. tolerant. Patient was evaluated by Vic yesterday and as per Ortho note they agree with discharging patient on p.o. antibiotics and for him to follow-up with them within 2 weeks. Patient denies any fever, chills, nausea, vomiting, diarrhea, constipation or any urinary symptoms. Patient has cut down on his excessive fruit juice intake. Reason For Visit: RIGHT KNEE ABSCESS Physical Exam Vital Signs: Temp Pulse Resp BP Pulse Ox 98.4 F 70 15 137/74 H 97 01/07/18 11:08 01/07/18 11:08 01/07/18 11:08 01/07/18 11:08 01/07/18 11:08 Intake & Output 01/06/18 01/07/18 01/08/18 06:59 06:59 06:59 Intake Total 1750 1952 1000 Output Total 1200 2875 Balance 550 -923 1000 Weight 73 kg 73 kg Results Laboratory Results: 01/07/18 05:05 01/07/18 05:05 01/06/18 01/07/18 01/07/18 15:44 05:05 05:05 WBC 14.9 H RBC 5.15 Hgb 14.6 Hct 44.0 MCV 86 MCH 28.4 MCHC 33.2 RDW 15.2 H Plt Count 251 Seg Neutrophils % Not Reportable Lymphocytes % Not Reportable Monocytes % Not Reportable Eosinophils % Not Reportable Basophils % Not Reportable Absolute Neutrophils Not Reportable Absolute Lymphocytes Not Reportable Absolute Monocytes Not Reportable Absolute Eosinophils Not Reportable Absolute Basophils Not Reportable Sodium 139.0 138.8 Potassium 5.6 H 4.6 D Chloride 99 101 Carbon Dioxide 29 26 Anion Gap 11 12 BUN 18 16 Creatinine 1.02 0.97 Est GFR ( Amer) > 60 > 60 Est GFR (Non-Af Amer) > 60 > 60 Glucose 86 114 H Calcium 9.8 9.8 Total Bilirubin 0.4 AST 91 H ALT 157 H Alkaline Phosphatase 80 Total Protein 7.2 Albumin 4.0 Impressions: Extremity Ultrasound 12/31/17 11:04 IMPRESSION: Soft tissue edema. There appears to be a small abscess as described. Assessment & Plan - Diagnosis (1) Abscess of knee, right Is this a current diagnosis for this admission?: Yes Plan: Culture growing MRSA sensitive to Bactrim and clindamycin. Rocephin was discontinued yesterday. As per ID recommendation will DC vancomycin and switch to Bactrim DS for another 8 days to complete total of 10 days. Last dosage will be on 01/13/2018. Continue wound care, physical therapy, and DVT prophylaxis. Ultrasound of the right knee showed extra-articular. Small abscess which was drained by Orth on 01/01/2018. (2) MRSA (methicillin resistant Staphylococcus aureus) carrier Is this a current diagnosis for this admission?: Yes (3) Hyperkalemia Is this a current diagnosis for this admission?: Yes Plan: Resolved. Possibly diet related. Patient has been drinking excessive canned fruit juices. Blood sample was not hemolyzed as per chemistry. (4) Hypertension Is this a current diagnosis for this admission?: Yes Plan: Controlled. Systolic blood pressure has been running in 140s and 150s. Increase amlodipine to 5 mg p.o. daily. Patient is to follow-up with PCP to adjust his medication. (5) Leukocytosis Is this a current diagnosis for this admission?: Yes Plan: Leukocytosis with bandemia. Patient is denying any fever or chills. Blood culture. Continue antibiotics.
[2018-01-07] MEDS: HYDROCODONE/ACETAMINOPHEN 7.5-325 MG TABLET PO PRN (13:06)
[2018-01-08 05:49] LABS: HEMATOCRIT 43.8 % (37.9-51.0); HEMOGLOBIN 14.7 g/dL (13.5-17.0); MEAN CORPUSCULAR HEMOGLOBIN 28.3 pg (27.0-33.4); MEAN CORPUSCULAR HGB CONC 33.7 g/dL (32.0-36.0); MEAN CORPUSCULAR VOLUME 84 fl (80-97); PLATELET COUNT 262 10^3/uL (150-450); RED BLOOD COUNT 5.22 10^6/uL (4.35-5.55); WHITE BLOOD COUNT 10.9 10^3/uL (4.0-10.5)
[2018-01-08 06:12] LABS: ABSOLUTE LYMPHOCYTES# (MANUAL) 2.8 10^3/uL (0.5-4.7); ABSOLUTE MONOCYTES # (MANUAL) 0.4 10^3/uL (0.1-1.4); ABSOLUTE NEUTROPHILS# (MANUAL) 6.8 10^3/uL (1.7-8.2); BASOPHILS % (MANUAL) 3 % (0-2); EOSINOPHILS % (MANUAL) 5 % (0-6); LYMPHOCYTES % (MANUAL) 26 % (13-45); MONOCYTES % (MANUAL) 4 % (3-13); SEGMENTED NEUTROPHILS % (MAN) 62 % (42-78); TOTAL CELLS COUNTED 100
[2018-01-08 06:15] LABS: ANISOCYTOSIS SLIGHT; OVALOCYTES SLIGHT; PLATELET COMMENT ADEQUATE; POIKILOCYTOSIS 1+; TEAR DROP CELLS SLIGHT
[2018-01-08] MEDS ORDERED: HYDROCODONE/ACETAMINOPHEN 7.5-325 MG TABLET PO PRN (09:29)
[2018-01-08] MEDS: HEPARIN SOD (PORCINE) 5,000 UNIT/ML 1 ML SYRINGE SUBCUT SCH (10:15)
[2018-01-08] MEDS: OXYCODONE HCL SR 10 MG TABLET PO SCH (10:17)
[2018-01-08] MEDS: SULFAMETHOXAZOLE/TRIMETHOPRIM 800-160 MG TABLET PO SCH (10:17)
--- NOTE | 2018-01-08 13:32 | PDOC PROGRESS REPORT ---
Subjective Progress Note for:: 01/08/18 Subjective:: Patient had no issues and states pain is improved. Working on range of motion of the knee. Reason For Visit: RIGHT KNEE ABSCESS Physical Exam Vital Signs: Temp Pulse Resp BP Pulse Ox 36.6 C 73 15 137/81 H 98 01/08/18 12:37 01/08/18 12:37 01/08/18 12:37 01/08/18 12:37 01/08/18 12:37 Intake & Output 01/07/18 01/08/18 01/09/18 06:59 06:59 06:59 Intake Total 1952 2697 Output Total 2877 975 Balance -923 1722 Weight 73 kg 69.8 kg Adult Front & Back Image: 1 - Erythema has resolved and the swelling has improved. About a 2 cm x 2cm wound is present with wet-to-dry dressing showing some granulation tissues at the base. Neurovascular intact distally with full range of motion of the knee Results Laboratory Results: 01/08/18 05:05 01/07/18 05:05 01/08/18 05:05 WBC 10.9 H RBC 5.22 Hgb 14.7 Hct 43.8 MCV 84 MCH 28.3 MCHC 33.7 RDW 15.0 H Plt Count 262 Seg Neutrophils % Not Reportable Lymphocytes % Not Reportable Monocytes % Not Reportable Eosinophils % Not Reportable Basophils % Not Reportable Absolute Neutrophils Not Reportable Absolute Lymphocytes Not Reportable Absolute Monocytes Not Reportable Absolute Eosinophils Not Reportable Absolute Basophils Not Reportable Impressions: Extremity Ultrasound 12/31/17 11:04 IMPRESSION: Soft tissue edema. There appears to be a small abscess as described. Assessment & Plan - Diagnosis (1) Abscess of knee, right Is this a current diagnosis for this admission?: Yes Plan: Resolution of the right superficial abscess. Just needs wet-to-dry dressing to fill out the open wound. Continue antibiotics per recommendation. Can follow-up as an outpatient.
[2018-01-08 14:27] VITALS: BP 132/78
--- NOTE | 2018-01-08 15:05 | PDOC DISCHARGE SUMMARY ---
General - Admit/Disc Date/PCP Admission Date/Primary Care Provider: 01/03/18 16:17 Discharge Date: 01/08/18 - Discharge Diagnosis (1) Abscess of knee, right Is this a current diagnosis for this admission?: Yes (2) MRSA (methicillin resistant Staphylococcus aureus) carrier Is this a current diagnosis for this admission?: Yes (3) Hyperkalemia Is this a current diagnosis for this admission?: Yes (4) Hypertension Is this a current diagnosis for this admission?: Yes (5) Leukocytosis Is this a current diagnosis for this admission?: Yes - Additional Information Resuscitation Status: Full Code Discharge Diet: Regular Discharge Activity: Activity As Tolerated Prescriptions: Amlodipine Besylate [Norvasc 2.5 mg Tablet] 2.5 mg PO DAILY 30 Days #30 tablet Sulfamethoxazole/Trimethoprim [Septra-Ds 800-160 mg Tablet] 1 tab PO Q12 8 Days #16 tablet Home Medications: Amlodipine Besylate [Norvasc 2.5 mg Tablet] 2.5 mg PO DAILY 30 Days #30 tablet 01/06/18 Sulfamethoxazole/Trimethoprim [Septra-Ds 800-160 mg Tablet] 1 tab PO Q12 8 Days #16 tablet 01/06/18 History of Present Illness Patient complains of: Right knee pain History of Present Illness: 32-year-old male history of right hand MRSA infection who was admitted for worsening right knee tenderness. On admission he stated that he had an ingrown hair on the right knee which started with a small erythema around 3 days prior to admission. He came to ED because of worsening tenderness and erythema of the left knee. An ultrasound of the knee showed small abscess and patient underwent bedside drainage by Ortho on 01/01/2018. Hospital Course Hospital Course: (1) Abscess of knee, right Culture growing MRSA sensitive to Bactrim and clindamycin. Rocephin was discontinued yesterday. As per ID recommendation will DC vancomycin and switch to Bactrim DS for another 8 days to complete total of 10 days. Last dosage will be on 01/13/2018. Continue wound care, physical therapy, and DVT prophylaxis. Ultrasound of the right knee showed extra-articular. Small abscess which was drained by Orth on 01/01/2018. (2) MRSA (methicillin resistant Staphylococcus aureus) carrier Anterior nares swab culture negative (3) Hyperkalemia Resolved. Possibly diet related. Patient has been drinking excessive canned fruit juices. Blood sample was not hemolyzed as per chemistry. (4) Hypertension Controlled. Systolic blood pressure has been running in 140s and 150s. Increase amlodipine to 5 mg p.o. daily. Patient is to follow-up with PCP to adjust his medication. (5) Leukocytosis Improved. Patient is denying any fever or chills. Blood culture. Continue antibiotics. Physical Exam Vital Signs: Temp Pulse Resp BP Pulse Ox 97.8 F 73 15 132/78 H 98 01/08/18 14:23 01/08/18 14:23 01/08/18 14:23 01/08/18 14:23 01/08/18 14:23 Intake & Output 01/07/18 01/08/18 01/09/18 06:59 06:59 06:59 Intake Total 1952 2697 738 Output Total 2875 975 Balance -923 1722 738 Weight 73 kg 69.8 kg General appearance: PRESENT: no acute distress, well-developed, well-nourished Head exam: PRESENT: atraumatic, normocephalic Eye exam: PRESENT: conjunctiva pink, EOMI, PERRLA. ABSENT: scleral icterus Ear exam: PRESENT: normal external ear exam Mouth exam: PRESENT: moist, tongue midline Neck exam: ABSENT: carotid bruit, JVD, lymphadenopathy, thyromegaly Respiratory exam: PRESENT: clear to auscultation lexi. ABSENT: rales, rhonchi, wheezes Cardiovascular exam: PRESENT: RRR. ABSENT: diastolic murmur, rubs, systolic murmur Pulses: PRESENT: normal dorsalis pedis pul Vascular exam: PRESENT: normal capillary refill GI/Abdominal exam: PRESENT: normal bowel sounds, soft. ABSENT: distended, guarding, mass, organolmegaly, rebound, tenderness Rectal exam: PRESENT: deferred Extremities exam: PRESENT: full ROM. ABSENT: calf tenderness, clubbing, pedal edema Musculoskeletal exam: PRESENT: other - Anterior right knee erythema has resolved. Wound is clean no active sign of infection. Neurological exam: PRESENT: alert, awake, oriented to person, oriented to place , oriented to time, oriented to situation, CN II-XII grossly intact. ABSENT: motor sensory deficit Psychiatric exam: PRESENT: appropriate affect, normal mood. ABSENT: homicidal ideation, suicidal ideation Skin exam: PRESENT: dry, intact, warm. ABSENT: cyanosis, rash Results Laboratory Results: 01/08/18 05:05 01/07/18 05:05 01/08/18 05:05 WBC 10.9 H RBC 5.22 Hgb 14.7 Hct 43.8 MCV 84 MCH 28.3 MCHC 33.7 RDW 15.0 H Plt Count 262 Seg Neutrophils % Not Reportable Lymphocytes % Not Reportable Monocytes % Not Reportable Eosinophils % Not Reportable Basophils % Not Reportable Absolute Neutrophils Not Reportable Absolute Lymphocytes Not Reportable Absolute Monocytes Not Reportable Absolute Eosinophils Not Reportable Absolute Basophils Not Reportable Impressions: Extremity Ultrasound 12/31/17 11:04 IMPRESSION: Soft tissue edema. There appears to be a small abscess as described. Qualifiers - * PATIENT BEING DISCHARGED WITH ANY OF THE FOLLOWING DIAGNOSIS: No
== END 2018-01-08 15:20 | disposition home or self-care (01) | DRG 603 ==
LOC: ER 15:47 → EH 19:53 → 4S 20:43 → OBSVTOIN 01-03 16:17
PROVIDERS: ADMIT Internal Medicine; ATTEND Internal Medicine
PROC: 0H9KXZX Drainage of Right Lower Leg Skin, External Approach, Diagnostic (ICD-10-PCS; principal; 2018-01-01)
DX: L03.115 Cellulitis of right lower limb (principal); L02.415 Cutaneous abscess of right lower limb; B95.62 Methicillin resistant Staphylococcus aureus infection as the cause of diseases classified elsewhere; E87.5 Hyperkalemia; I10 Essential (primary) hypertension; F17.210 Nicotine dependence, cigarettes, uncomplicated
CPT/HCPCS: 36415; 76882; 80048; 80053; 80202; 82565; 82962; 85025; 87040; 87070; 87075; 87077; 87186; 87205; 90471; 90686; 93005; 93010; 94640; 99284; A6266; G0008; G0378; J0610; J0696; J1170; J1200; J1644; J1815; J2270; J2920; J3370; J3490; J7030; J7060

== ENCOUNTER 2018-08-30 15:25 | Emergency (ER) | payer SELFPAY ==
[2018-08-30] MEDS ORDERED: LIDOCAINE 1% INJ-PF (10 MG/ML) 30 ML SDV INJ ONE (16:20)
[2018-08-30] MEDS ORDERED: IBUPROFEN 800 MG TABLET PO ONE (16:20)
--- NOTE | 2018-08-30 16:22 | ER Document Report ---
ED Medical Screen (RME) - General Chief Complaint: Laceration Stated Complaint: ARM INJURY Time Seen by Provider: 08/30/18 16:17 TRAVEL OUTSIDE OF THE [place] IN LAST 30 DAYS: No - HPI Notes: 08/30/18 16:20 Patient is a 32-year-old male with no significant past medical history who presents complaining of laceration to his right anterior forearm by a piece of tile prior to arrival. Patient states that he can still move his wrist and fingers without any difficulties otherwise. Patient states the bleeding has been well controlled with the dressing he is on. Last tetanus was within the last year. Denies drug allergies. Denies MUÑOZ, fever, neck pain, URI, CP, SOB, Abd pain, dysuria, back pain, or rash. I have treated and performed a rapid initial assessment of this patient. A comprehensive ED assessment and evaluation of the patient, analysis of test results and completion of medical decision making process will be conducted by additional ED providers. PHYSICAL EXAMINATION: GENERAL: Well-appearing, well-nourished and in no acute distress. A&Ox4. Answers questions appropriately. RUE: FROM to wrist/fingers. N/V intact distal. + 2cm irregular superficial laceration noted to prox anterior forearm. No obvious arterial bleed. - Related Data Allergies/Adverse Reactions: No Known Allergies Allergy (Verified 08/30/18 15:55) Past Medical History - Social History Frequency of alcohol use: Social Drug Abuse: None - Past Medical History Cardiac Medical History: Reports: Hx Hypertension - no longer on meds Renal/ Medical History: Denies: Hx Peritoneal Dialysis Musculoskeltal Medical History: Reports Hx Musculoskeletal Deformity, Reports Hx Musculoskeletal Trauma Psychiatric Medical History: Reports: Hx Depression Traumatic Medical History: Reports: Hx Fractures - Finger and wrist Past Surgical History: Reports: Hx Orthopedic Surgery - R finger, right knee - Immunizations Immunizations up to date: Yes Hx Diphtheria, Pertussis, Tetanus Vaccination: Yes Physical Exam - Vital signs Vitals: Temp Pulse Resp BP Pulse Ox 97.8 F 57 L 18 141/80 H 98 08/30/18 15:57 08/30/18 15:57 08/30/18 15:57 08/30/18 15:57 08/30/18 15:57 Course - Vital Signs Vital signs: Temp Pulse Resp BP Pulse Ox 97.8 F 57 L 18 141/80 H 98 08/30/18 15:57 08/30/18 15:57 08/30/18 15:57 08/30/18 15:57 08/30/18 15:57
--- NOTE | 2018-08-30 16:52 | RADIOLOGY REPORT (SQ) ---
EXAM DESCRIPTION: FOREARM RIGHT COMPLETED DATE/TIME: 08/30/2018 4:38 pm REASON FOR STUDY: anterior proximal laceration by tile COMPARISON: None. NUMBER OF VIEWS: Two views. TECHNIQUE: Two radiographic images acquired of the right forearm, including elbow and wrist in at le ast one projection. LIMITATIONS: None. FINDINGS: MINERALIZATION: Normal. BONES: No acute fracture. No worrisome bone lesions. SOFT TISSUES: No obvious swelling or foreign body. OTHER: No other significant finding. IMPRESSION: NEGATIVE STUDY OF THE RIGHT FOREARM. NO RADIOGRAPHIC EVIDENCE OF ACUTE INJURY. TECHNICAL DOCUMENTATION: JOB ID: [id number] [id number]- All Rights Reserved Reading location - IP/workstation name: [email or web address] [id number]
--- NOTE | 2018-08-30 18:21 | ER Document Report ---
Addendum entered and electronically signed by BOBBY MILNER PA-C 08/30/18 19:14: Discharge - Discharge Clinical Impression: Laceration of right forearm Qualifiers: Encounter type: initial encounter Qualified Code(s): S51.811A - Laceration without foreign body of right forearm, initial encounter Condition: Stable Disposition: HOME, SELF-CARE Instructions: Antibiotic Ointment Protection ([facility]), Laceration Care ([facility]) Additional Instructions: Keep wound clean with soap and water. Have sutures removed in 7 to 10 days. If you develop increased redness, fever, drainage, or any other new or concerning symptoms, return immediately to the emergency department for reevaluation. Original Note: ED General - General TRAVEL OUTSIDE OF THE [place] IN LAST 30 DAYS: No <ALAP GAMBINO - Last Filed: 08/30/18 18:16> <BOBBY MILNER - Last Filed: 08/30/18 18:42> - General Chief Complaint: Laceration Stated Complaint: ARM INJURY Time Seen by Provider: 08/30/18 16:17 - HPI Notes: Patient is a 32-year-old male who presents emergency department for evaluation after sustaining a laceration. He states he was carrying tile and it cut his forearm. He denies any numbness or tingling. He states his tetanus is up-to-date. He states his pain is minimal. He already had a motion deficit in his right index finger, secondary to surgery, but denies any other motion deficits. (ALPA GAMBINO) - Related Data Allergies/Adverse Reactions: No Known Allergies Allergy (Verified 08/30/18 15:55) Past Medical History - Social History Smoking Status: Current Every Day Smoker Frequency of alcohol use: Social Drug Abuse: None Family History: CAD, CVA, DM, Hyperlipidemia, Hypertension, Malignancy Patient has suicidal ideation: No Patient has homicidal ideation: No - Past Medical History Cardiac Medical History: Reports: Hx Hypertension - no longer on meds Renal/ Medical History: Denies: Hx Peritoneal Dialysis Musculoskeletal Medical History: Reports Hx Musculoskeletal Deformity, Reports Hx Musculoskeletal Trauma Psychiatric Medical History: Reports: Hx Depression Traumatic Medical History: Reports: Hx Fractures - Finger and wrist Past Surgical History: Reports: Hx Orthopedic Surgery - R finger, right knee - Immunizations Immunizations up to date: Yes Hx Diphtheria, Pertussis, Tetanus Vaccination: Yes <ALPA GAMBINO - Last Filed: 08/30/18 18:16> Review of Systems - Review of Systems Constitutional: No symptoms reported EENT: No symptoms reported Cardiovascular: No symptoms reported Respiratory: No symptoms reported Gastrointestinal: No symptoms reported Genitourinary: No symptoms reported Musculoskeletal: See HPI Skin: See HPI Neurological/Psychological: No symptoms reported <ALPA GAMBINO - Last Filed: 08/30/18 18:16> Physical Exam <ALPA GAMBINO - Last Filed: 08/30/18 18:16> - Vital signs Vitals: Temp Pulse Resp BP Pulse Ox 97.8 F 57 L 18 141/80 H 98 08/30/18 15:57 08/30/18 15:57 08/30/18 15:57 08/30/18 15:57 08/30/18 15:57 - Notes Notes: This is a pleasant 32-year-old male who appears stated age in no acute distress. Exam is limited to the area of chief complaint. Examination of the right upper extremity yields a 2 cm linear laceration on the volar aspect of the forearm. It does go into the subcutaneous tissue. I do not see any obvious tendon injury. He has full range of motion of the shoulder, elbow, wrist, thumb, and middle, ring, and small fingers. He has a motion deficit in his index finger that the patient states is stable. The laceration corresponds more to the ulnar aspect of the forearm. There is no obvious foreign body. Radial pulses 2+. Capillary refill is brisk. Sensation (ALPA GAMBINO) Course <ALPA GAMBINO - Last Filed: 08/30/18 18:16> - Re-evaluation Re-evalutation: 08/30/18 18:17 Patient presents emergency department for evaluation. He had x-rays ordered to rule out foreign body, none was identified. The wound was thoroughly explored, found to be without foreign body, and closed. Please see separate procedure note. He is given discharge instructions in regards to suture laceration care. He is to return to the ED with worsening or new concerning symptoms of any sort. (ALPA GAMBINO) - Vital Signs Vital signs: Temp Pulse Resp BP Pulse Ox 97.8 F 57 L 18 141/80 H 98 08/30/18 15:57 08/30/18 15:57 08/30/18 15:57 08/30/18 15:57 08/30/18 15:57 Procedures - Laceration/Wound Repair right forearm Wound length (cm): 2 Wound's Depth, Shape: Superficial, Linear Laceration pre-procedure: Sterile PPE donned, Sterile drapes applied, Shur-Clens applied Anesthetic type: 1% Lidocaine Volume Anesthetic (mLs): 5 Wound explored: Clean, No foreign body removed Irrigated w/ Saline (mLs): 5,000 Wound Debrided: Minimal Wound Repaired With: Sutures Suture Size/Type: 4:0, Ethilon Number of Sutures: 4 Post-procedure wound care: Sterile dressing applied Post-procedure NV exam normal: Yes Complications: No <BOBBY MILNER - Last Filed: 08/30/18 18:42> Discharge <ALPA GAMBINO - Last Filed: 08/30/18 18:16> <BOBBY MILNER - Last Filed: 08/30/18 18:42> - Discharge Clinical Impression: Laceration of right forearm Qualifiers: Encounter type: initial encounter Qualified Code(s): S51.811A - Laceration wi thout foreign body of right forearm, initial encounter Condition: Stable Disposition: HOME, SELF-CARE Instructions: Antibiotic Ointment Protection ([facility]), Laceration Care ([facility]) Additional Instructions: Keep wound clean with soap and water. Have sutures removed in 7 to 10 days. If you develop increased redness, fever, drainage, or any other new or concerning symptoms, return immediately to the emergency department for reevaluation.
[2018-08-30 19:22] VITALS: BP 129/75
== END 2018-08-30 19:22 | disposition home or self-care (01) ==
LOC: ER 15:25
DX: S51.811A Laceration without foreign body of right forearm, initial encounter (principal); W26.8XXA Contact with other sharp object(s), not elsewhere classified, initial encounter; F17.200 Nicotine dependence, unspecified, uncomplicated
CPT/HCPCS: 99283